=== PATIENT | male | born 1955 | race Caucasian/White ===

== ENCOUNTER 2021-09-23 12:20 | Inpatient (IN) | payer BC, OTHER ==
--- OUTSIDE RECORDS SUMMARY | 2021-09-23 12:22 | XMS REPORT | Clinical Summary ---
:1955 Author Organization [facility] MD [facility] Address [address] [place] [address] Care Team Providers Name Role Phone [facility] Allergies Not on File Medications Not on file Active Problems Not on file Social History Tobacco Use Types Packs/Day Years Used Date Never Assessed Sex Assigned at Date Recorded Not on file Job Start Date Occupation Industry Not on file Not on file Not on file Last Filed Vital Signs Not on file Plan of Treatment Date Type Specialty Care Team Description 10/04/2021 [employer] Patient Access Services 10/04/2021 Office Visit Internal Medicine Stephany Marsh MD [address] [place], [place] [address] (Wo rk) Results Not on fileafter 09/23/2020 Insurance Payer Benefit Plan / Subscriber ID Effective Dates Phone Addre ss Type Group [facility] [id number] 2017-Present [id number] [facility] [facility] [id number] Care Teams All Source Analyst Relationship Specialty Start Date End Date Sendy Wayne PCP - External Primary Care 09/10/21 Provider
--- OUTSIDE RECORDS SUMMARY | 2021-09-23 12:23 | XMS REPORT | Continuity of Care Document ---
:1955 Author Organization [facility] t Address [address] [place] [address] Care Team Providers Name Role Phone [phone] Primary Care Physician Unavailable SYSTEM, NOT IN Attending Clinician Unavailable JOSIE Attending Clinician Unavailable Tony WILLS Attending Clinician TONY Attending Clinician Unavailable JOSIE Admitting Clinician Unavailable Payers Payer Name Policy Type Policy Number Effective Date Expiration Date S [facility] [id number] 2016 00:00[facility]00 [id number] 2017 BLUE/ESSENTIALS 00:00:00 Problems Condition Condition Condition Status Onset Resolution Last Treating Co mments Source Name Details Category Date Date Treatment Clinician Date No known No known Disease Unive rs active active ity of problems problems [facility] Allergies, Adverse Reactions, Alerts Allergy Allergy Status Severity Reaction(s) Onset Inactive Treating Comm ents Source Name Type Date Date Clinician NO KNOWN Drug Active Univers ALLERGIE Class ity of S [facility] NO KNOWN [facility] Social [facility] Social Habit Start Date Stop Date Quantity Comments Source Exposure to Not sure [facility] SARS-CoV-2 (event) Medica l Branch Sex Assigned At [birth year] MD Lyles on 00:00:00 00:00:00 Smoking Status Start Date Stop Date Source Unknown if ever smoked [facility] Medical Branch Medications Ordered Filled Start Stop Current Ordering Indication Dosage Frequency Signature Comments Components Source Medication Medication Date Date Medication? Clinician (SIG) Name Name sitagliptin Yes Take by Un [facility] phos/metfor 2-13 mouth. ity of min HCl 00:31: [place] (JANUMET 03 Medical ORAL) Branch losartan Yes Take by Unive rs potassium 2-13 mouth. ity of (LOSARTAN 00:31: [place] ORAL) 03 Medical Branch SIMVASTATIN Yes Take by Un [facility]arris ORAL 2-13 mouth. ity of 00:31: [address] Branch Sildenafil Sildenafil Mary [address] [facility] Citrate Citrate 07-04 09-26 Alexis as needed [facility] Plavix Plavix 2018-11 Yes Mary [address] [facility] 0[facility]17 [facility] Aspirin Aspirin 2018-11 Yes Mary [address] [facility] Augmentin Augmentin Yes Mary [address] [facility] 9-20 [place] [facility] Yes Mary [address] [facility] with meals [facility] Simvastatin Simvastatin Yes Mary [address] [facility] in the [facility] - evening [facility] Cozaar Cozaar Yes Mary [address] [facility] Elavil Elavil Yes Mary 0.[address] [facility] Anoro Anoro Yes Mary [address] [facility] Ellipta Ellipta [place] [facility] Aspirin Aspirin Yes Mary [address] [facility] [place] [facility] ProAir HFA ProAir HFA Yes Mary [address] [facility] needed [facility] Vital Signs Vital Name Observation Time Observation Value Comments Source HEIGHT 2020-12-28 07:50:00 182.9 cm WEIGHT 2020-12-28 07:50:00 82.2 kg HEIGHT 2020-12-15 15:00:00 182.9 cm WEIGHT 2020-12-15 15:00:00 83.915 kg HEIGHT 2020-12-28 07:50:00 182.9 cm WEIGHT 2020-12-28 07:50:00 82.2 kg HEIGHT 2020-12-15 15:00:00 182.9 cm WEIGHT 2020-12-15 15:00:00 83.915 kg Systolic blood 2020-12-16 00:32:00 140 mm[Hg] Univer sity of pressure [facility] Diastolic blood 2020-12-16 00:32:00 85 mm[Hg] [facility] Heart rate 2020-12-16 00:32:00 81 /min [facility] Respiratory rate 2020-12-16 00:32:00 19 /min [facility] Oxygen saturation in 2020-12-16 00:32:00 96 /min [facility] Arterial blood by [facility] Pulse oximetry Branch Body temperature 2020-12-15 22:15:00 36.06 Suzette [facility] Body height 2020-12-15 22:15:00 182.9 cm [facility] Body weight 2020-12-15 22:15:00 84.369 kg [facility] BMI 2020-12-15 22:15:00 25.23 kg/m2 [facility] Procedures Procedure Date / Time Performed Performing Clinician Sour e NOTICE OF PRIVACY 2020-12-16 00:42:11 Doctor Unassigned, No [facility] PRACTICES Name [facility] Branch CONSENT/REFUSAL FOR 2020-12-16 00:41:54 Doctor Unassigned, No [facility] AND Name [facility] TREATMENT ADC / LCC - DRUG 2020-12-15 23:47:00 Taylor Leahy [facility] SCREEN TRIAGE Medical Branch COVID-19 (ID NOW RAPID 2020-12-15 23:13:00 [facility] CT HEAD WO CONTRAST 2020-12-15 22:53:16 Taylor Leahy [facility] CREATINE KINASE 2020-12-15 22:28:00 [facility] 2020-12-15 22:28:00 Taylor Leahy [facility] ([id number]) [facility] (ALB,T.PRO,BILI T,BU/BC,ALT,AST,ALK PHOS) BASIC METABOLIC PANEL 2020-12-15 22:28:00 [facility] (NA, K, CL, CO2, Medical Branch GLUCOSE, BUN, CREATININE, CA) CBC WITH DIFF 2020-12-15 22:28:00 [facility] 2020-12-15 22:28:00 [facility] En[facility]ters Start End Encounter Admission Attending Care Care Encounter Source Date/Time Date/Time Type Type Clinicians Facility Department ID 2021-09-10 Outpatient SYSTEM, [facility] [id number] 17:20:06 PROVIDER Rafal stevenson 2021-08-10 Inpatient GALINDO, [facility] Surgery [id number] [facility] 22:56:28 NICCI 2021-09-04 2021-09-04 ambulatory [facility] [id number] [facility] 2021-09-03 2021-09-03 ambulatory [facility] [id number] [facility] 2021-09-03 2021-09-03 ambulatory [facility] [id number] [facility] 2021-07-04 2021-07-04 Outpatient [facility] [id number] [facility] 2021-06-06 2021-06-06 Outpatient [facility]LMLC [facility] [id number] [facility] 2021-05-16 2021-05-16 Outpatient [facility]LMLC [facility] [id number] [facility] 2021-05-09 2021-05-09 Outpatient [facility]LMLC [facility] [id number] [facility] 2021-04-17 2021-04-17 Outpatient [facility]LML[facility] [id number] [facility] 2021-02-07 2021-02-07 Outpatient [facility]LMLC [facility] [id number] [facility] 2021-02-01 2021-02-01 Outpatient [facility]LMLC [facility] [id number] [facility] 2021-01-10 2021-01-10 Outpatient STLMLC [facility] [id number] [facility] 2021-01-02 2021-01-02 Outpatient [facility]LMLC [facility] [id number] [facility] 2020-12-29 2020-12-29 Outpatient [facility]LMLC [facility] [id number] [facility] 2020-12-29 2020-12-29 Outpatient [facility]LMLC [facility] [id number] [facility] 2020-12-27 2020-12-27 Outpatient [facility]LMLC [facility] [id number] [facility] 2020-12-27 2020-12-27 Outpatient STLMLC [facility]LML[facility] [id number] [facility] 2020-12-25 2020-12-25 Outpatient EL [facility] [id number] [facility] 00:00:00 00:00:00 2020-12-25 2020-12-25 Outpatient [facility] [id number] [facility] 00:00:00 00:00:00 2020-12-25 2020-12-25 Outpatient [facility] [id number] [facility] 00:00:00 00:00:00 2020-12-22 2020-12-22 Outpatient [facility] [id number] [facility] 00:00:00 00:00:00 2020-12-22 2020-12-22 Outpatient [facility] [id number] [facility] 2020-12-22 2020-12-22 Outpatient [facility] [id number] [facility] 2020-12-21 2020-12-21 Outpatient [facility] [id number] [facility] 2020-12-15 2020-12-15 Emergency [facility] [id number] Univers 16:14:00 18:40:00 Taylor Benjamin [id number] i [facility] [id number] [facility] [id number] [address] 2020-12-15 2020-12-15 Emergency X [facility] ERT [id number] Univers 16:14:00 16:14:00 TAYLOR tompkins [facility] 2020-12-15 2020-12-15 [facility] [id number] [facility] 00:00:00 00:00:00 2020-12-15 2020-12-15 Outpatient [facility] [id number] [facility] 2020-11-13 2020-11-13 Outpatient [facility] [id number] [facility] 2020-10-04 2020-10-04 [facility] [id number] [facility] 2020-08-28 2020-08-28 [facility] [id number] [facility] 2020-08-28 2020-08-28 [facility] [id number] [facility] 2020-08-10 2020-08-10 [facility] [id number] [facility] 2020-08-01 2020-08-01 [facility] [id number] [facility] 2020-07-25 2020-07-25 [facility] [id number] [facility] 2020-07-25 2020-07-25 [facility] [id number] [facility] 2020-07-04 2020-07-04 [facility] [id number] [facility] 09:45:00 09:45:00 t Specialty/U Evon kes - Specialty rology Memori a /Urology Clinic l Clinic Outpati ent Clinics 2020-06-28 2020-06-28 [facility] [id number] [facility] 08:00:00 08:00:00 t Cart[facility]ure s - Drive [facility] Family Medicine l Medicine Outpati ent Clinics 2020-03-28 2020-03-28 [facility] [id number] 15:00:00 15:00:00 t [employer] s - Drive [facility] Family Medicine l Medicine Outpati ent Clinics 2020-03-15 2020-03-15 [facility] [id number] 10:20:00 10:20:00 [place] - [facility] Medicine l Medicine Outpati ent Clinics 2019-10-05 2019-10-05 [facility] [id number] 15:10:00 15:10:[address] Luke [place] - Drive [facility] Medicine l Medicine Outpati ent Clinics 2019-09-16 2019-09-16 [facility] [id number] [address] 08:01:00 08:01:00 [place] s - Drive [facility] Medicine Medicine Outpati ent Clinics 2019-09-10 2019-09-10 [facility] [id number] 17:17:00 17:17:00 [place] [employer] s - Drive [facility] Medicine Medicine Outpati ent Clinics 2019-08-19 2019-08-19 [facility] [id number] 08:00:00 08:00:00 [place] [employer] [facility] - Drive [facility] Medicine Medicine Outpati ent Clinics 2019-08-18 2019-08-18 [facility] [id number] 11:08:00 11:08:00 [place] [employer] [facility] - Drive [facility] Medicine Medicine Outpati ent Clinics 2019-02-16 2019-02-16 [facility] [id number] 16:12:00 16:12:00 [place] - Drive [facility] Medicine Medicine Outpati ent Clinics 2018-10-08 2018-10-08 [facility] [id number] 09:00:00 09:00:00 [place] [employer] [facility] - Drive [facility] Medicine Medicine Outpati ent Clinics 2018-07-23 2018-07-23 [facility] [id number] 11:00:00 11:00:00 [place] [employer] [facility] - Drive [facility] Medicine Medicine Outpati ent Clinics 2018-03-24 2018-03-24 [facility] [id number] 08:15:00 08:15:00 [place] [employer] [facility] - Drive [facility] Medicine Outpati ent Clinics Results Test Description Test Time Test Comments Results Result Sourc e Comments TISSUE EXAM 2021-01-02 Surgical Pathology 16:14:00 Report Case: [id number] Authorizing Provider: Nicci Galindo MD Collected: 12/28/2020 10:34 AM Ordering Location: [facility] PERIOPERATIVE Received: 12/28/2020 02:22 PM SERVICES Pathologist: Jj Arriaga MD Specimens: A) - Soft Tissue, Other, ANTERIOR PERIPROSTATIC FAT B) - Lymph Node, Pelvic, Left C) - Lymph Node, Pelvic, Right D) - Prostate, PROSTATE AND SEMINAL VESICLES A. SOFT TISSUE, ANTERIOR PERIPROSTATIC, EXCISION: - BENIGN FIBROFATTY SOFT TISSUEB. LYMPH NODES, LEFT PELVIC, DISSECTION: - TWO BENIGN LYMPH NODES (0/1)C. LYMPH NODES, RIGHT PELVIC, DISSECTION: - FOUR BENIGN LYMPH NODES (0/4)D. PROSTATE, RADICAL RETROPUBIC PROSTATECTOMY: - ADENOCARCINOMA, DARINEL 3+4 = 7, FOCAL EXTRAPROSTATIC EXTENSION, SURGICAL MARGINS NEGATIVE SEMINAL VESICLES, RADICAL RETROPUBIC PROSTATECTOMY - NO PATHOLOGIC DIAGNOSIS Signing Pathologist Direct Phone Line: [phone] ally signed by Jj Arriaga MD on 01/02/2021 at 4:14 PMPreliminary result electronically signed by Jj Arriaga MD on 01/01/2021 at 6:35 PMSections show a large right peripheral zone cancer going from the apex to the base of the gland. There is focal extraprostatic extension posteriorly in the apical third of the prostate on the right side and posterolaterally on the right at the level of the seminal vesicles However, the surgical margins are negative. There is intraductal carcinoma, reactive stroma and large volume perineural space invasion that are adverse prognostic indicators. PROSTATE GLAND: Radical Prostatectomy (PROSTATE GLAND: RADICAL PROSTATECTOMY - All Specimens)8th Edition - Protocol posted: 12/29/2019SPECIMEN Procedure: Radical prostatectomy Prostate Size: Prostate Weight (g): 31 g Prostate Greatest Dimension (Centimeters): 3 cm Additional Dimension (Centimeters): 3.8 cm Additional Dimension (Centimeters): 2.8 cmTUMOR Histologic Type: Acinar adenocarcinoma Histologic Grade: Grade Group and Darinel Score: Grade group 2 (Darinel Score 3 + 4 = 7) Percentage of Pattern 4: 40 % Intraductal Carcinoma (IDC): Not identified Tumor Quantitation: Estimated percentage of prostate involved by tumor: 40 % Extraprostatic Extension (EPE): Not identified Urinary Bladder Neck Invasion: Not identified Seminal Vesicle Invasion: Not identified Treatment Effect: No known presurgical therapy Lymphovascular Invasion: Present Perineural Invasion: Present MARGINS Margins: Uninvolved by invasive carcinoma : Benign prostate glands present at surgical margin LYMPH NODES Number of Lymph Nodes Involved: 0 Number of Lymph Nodes Examined: 5 PATHOLOGIC STAGE CLASSIFICATION (pTNM, AJCC 8th Edition) Primary Tumor (pT): pT2 Regional Lymph Nodes (pN): pN0 ADDITIONAL FINDINGS Additional Findings: High-grade prostatic intraepithelial neoplasia (PIN) Additional Findings: Nodular prostatic hyperplasia 07373, 31689 X 2, 22144Nubzgpafs cancer A. Soft tissue, otherB. Lymph node, pelvic, leftC. Lymph node, pelvic, rightD. ProstateA. Received in formalin labeled the patient's name, accession number and "anterior periprosthetic fat" is a 4.7 x 4.0 x 0.3 cm portion of gibson-yellow, fibrofatty adipose tissue. Sectioning reveals a gibson-yellow, fibrofatty cut surface. No discrete lesions are identified. The specimen is entirely submitted in A1-A5.B. Received in formalin labeled with the patient's name, accession number and "left pelvic lymph node" is a 6.0 x 5.2 x 0.8 cm aggregate of gibson-yellow, fibrofatty adipose tissue. Sectioning reveals a 4.9 x 1.4 x 0.7 cm gibson lymph node. The specimen is entirely submitted as follows:Section codeB1-B4-1 lymph node, serially sectionedB5-B 11-remainder of soft tissueC. Received in formalin labeled the patient's name, accession number and "right pelvic lymph node" is a 6.5 x 4.5 x 0.6 cm aggregate of gibson-yellow, fibrofatty adipose tissue. Sectioning reveals multiple gibson lymph nodes that range from 0.5-1.5 cm in greatest dimension. The specimen is entirely submitted as follows:Section codeC1-1 lymph node, bisectedC2-3 lymph stgbkN7-D6-voezcsemg of soft tissueRorylar REN Amaya HT (ASCP)Mili. Received as radical prostatectomy specimen in formalin with patient name, Laure Mooney with the accession number [id number] is a prostate with bilateral seminal vesicles and vas deferentia. The prostate weighs 31 gm and measures 3.0 cm apex to base, 3.8 cm transversely and 2.8 cm anterior to posterior. The right and left seminal vesicles measure 4.0 x 1.0 x 0.5 cm and 3.5 x 1.0 x 0.5 cm respectively. The right and left vas deferentia measure 5.5 cm and 3.0 cm in length respectively and 0.5 cm in diameter. The capsular surface of the prostate is purple-gibson to red, dusky and focally ragged. Ink code: right side inked in black, left side inked in blue. The prostate is serially sectioned from apex to base in entirety. The total number of slices including seminal vesicles and vas deferentia are 9. The sectioning of the prostate reveals pink-gibson to murrell-white, homogeneous, focally nodular prostatic parenchyma throughout. No discrete masses are identified. The sectioning of the seminal vesicles reveals a pink-gibson unremarkable cut surface. Section code: apical margins are submitted in cassette D1, the bladder neck margins are submitted in cassette D2 and the prostate slices are submitted D3 to D7. The right and left seminal vesicles at the base of the prostate are submitted in cassette D8, the seminal vesicle tips along with vas deferentia are submitted in cassette D9. /[facility]/plPerformed. POCT-GLUCOSE METER 2020-12-29 11:23:00 Test Item Value Reference Range Interpretation Comme [facility] POC-GLUCOSE METER (BEAKER) 314 mg/dL 70-110 H : TESTED AT [facility] [address] [place] [address] (test code = 1538) [facility] [id number]: Payroll Manager/Techni aaliyah ID = [id number] for IAN VIEIRA BASIC METABOLIC [id number] 05:48:00 Test Item Value Reference Range Interpretation Comments SODIUM (BEAKER) 136 meq/L 136-145 (test code = 381) POTASSIUM (BEAKER) 4.4 meq/L 3.5-5.1 (test code = 379) CHLORIDE (BEAKER) 106 meq/L 98-107 (test code = 382) CO2 (BEAKER) (test 22 meq/L 22-29 code = 355) BLOOD UREA NITROGEN 12 mg/dL 7-21 (BEAKER) (test code = 354) CREATININE (BEAKER) 1.02 mg/dL 0.57-1.25 (test code = 358) GLUCOSE RANDOM 249 mg/dL 70-105 H (BEAKER) (test code = 652) CALCIUM (BEAKER) 8.0 mg/dL 8.4-10.2 L (test code = 697) EGFR (BEAKER) (test 73 mL/min/1.73 ESTIMA RADHA GFR IS code = 1092) sq m NOT ACCURATE CREATININE CLEARANCE IN PREDICTING GLOMERULAR FILTRATION RATE . ESTIMATED GFR I S NOT APPLICABLE FOR DIALYSIS PATIEN TS. Payroll Manager ID - ADMINHEMOGLOBIN AND [id number] 05:16:00 Test Item Value Reference Range Interpretation Comments HEMOGLOBIN (BEAKER) (test code = 12.1 GM/DL 13.7-17.5 L 410) HEMATOCRIT (BEAKER) (test code = 35.7 % 40.1-51.0 L 411) Payroll Manager ID - 6000POCT-GLUCOSE [id number] 21:12:00 Test Item Value Reference Range Interpretation Comments POC-GLUCOSE METER 332 mg/dL 70-110 H : TESTED A T [facility] 6720 (BEAKER) (test code = [place], 1538) [address]: Payroll Manager/Techni aaliyah ID = [id number] for BEBA CASAS BASIC METABOLIC [id number] 15:20:00 Test Item Value Reference Range Interpretation Comments SODIUM (BEAKER) 138 meq/L 136-145 (test code = 381) POTASSIUM (BEAKER) 5.5 meq/L 3.5-5.1 H Specimen slightly (test code = 379) hemolyzed CHLORIDE (BEAKER) 107 meq/L 98-107 (test code = 382) CO2 (BEAKER) (test 22 meq/L 22-29 code = 355) BLOOD UREA NITROGEN 16 mg/dL 7-21 (BEAKER) (test code = 354) CREATININE (BEAKER) 1.24 mg/dL 0.57-1.25 Specimen slightly (test code = 358) hemolyzed GLUCOSE RANDOM 322 mg/dL 70-105 H (BEAKER) (test code = 652) CALCIUM (BEAKER) 7.8 mg/dL 8.4-10.2 L (test code = 697) EGFR (BEAKER) (test 58 mL/min/1.73 ESTIMA RADHA GFR IS code = 1092) sq m NOT ACCURATE CREATININE CLEARANCE IN PREDICTING GLOMERULAR FILTRATION RATE . ESTIMATED GFR I S NOT APPLICABLE FOR DIALYSIS PATIEN TS. Payroll Manager ID - DBPOCT-GLUCOSE [id number] 15:07:00 Test Item Value Reference Range Interpretation Comments POC-GLUCOSE METER 289 mg/dL 70-110 H : [facility] (BEAKER) (test code = [place], 1538) [address]: Payroll Manager/Techni aaliyah ID = [id number] for JACQUELIN TABOR HEMOGLOBIN AND [id number] 15:01:00 Test Item Value Reference Range Interpretation Comments HEMOGLOBIN (BEAKER) (test code = 12.9 GM/DL 13.7-17.5 L 410) HEMATOCRIT (BEAKER) (test code = 39.1 % 40.1-51.0 L 411) Payroll Manager ID - [id number]-GLUCOSE [id number] 08:00:00 Test Item Value Reference Range Interpretation Comments POC-GLUCOSE METER 150 mg/dL 70-110 H : [facility] (BEAKER) (test code = [place], 1538) [address]: Payroll Manager/Techni aaliyah ID = [id number] for Laureen Luther mark SARS-COV2/RT-PCR ([facility])2020-12-26 00:04:00 Test Item Value Reference Range Interpretation Comments SARS-COV2/RT-PCR (test Negative Not Detected, Negative, code = 8222952) See external report for linked test SARS-COV-2 PERFORMING LAB [facility] (test code = 6304377) Negative result for this test determines that SARS-CoV-2 RNA was not present in the specimen above the Limit of Detection (LOD). However, Negative results do not preclude SARS-CoV-2 infection and should not be used as the sole basis for treatment or patient management decisions. Negative results mustbe combined with clinical observations, patient history, and epidemiological information. A false negative result may occur if a specimen is improperly collected, transported or handled. A false negative result should be considered if patient's recent exposures or clinical presentation indicate that COVID-19 (SARS-CoV-2) is likely and diagnostic tests for other causes of illness are negative. Re-testing should be considered in cases of suspected false negatives.The limit of detection for this assay is 100 copies/mL.This SARS CoV-2 test is a real-time RT-PCR test intended for the qualitative detection of nucleic acid from SARS-CoV-2 in a nasopharyngeal swab specimen collected from individuals suspected of COVID-19 by their healthcare provider.This test has not been Food and Drug Administration (FDA) cleared or approved. This is a modified version of an approved Emergency Use Authorization (EUA) and is in the process of review by the FDA. Once authorized by the FDA, the issued EUA will be effective until the declaration that circumstances exist justifying the authorization of the emergency use of in vitro diagnostic tests for detection and/or diagnosis of COVID-19 is terminated under Section 564(b)(2) of the Act or the EUA is revoked under Section 564(g) of the Act.Testing was performed using the [employer]co SARS-CoV-2 assay.Fact Sheet for Healthcare Providers:https://www.HealthRally.zarco/ada/ RN_[email or web address]_[email or web address].pdfFact Sheet for Healthcare Patients:https://www.HealthRally.Adfaces [id number] Laboratory:[address] [address] BASIC METABOLIC [id number] 13:07:00 Test Item Value Reference Range Interpretation Comments SODIUM (BEAKER) 138 meq/L 136-145 (test code = 381) POTASSIUM (BEAKER) 4.4 meq/L 3.5-5.1 (test code = 379) CHLORIDE (BEAKER) 104 meq/L 98-107 (test code = 382) CO2 (BEAKER) (test 26 meq/L 22-29 code = 355) BLOOD UREA NITROGEN 9 mg/dL 7-21 (BEAKER) (test code = 354) CREATININE (BEAKER) 1.00 mg/dL 0.57-1.25 (test code = 358) GLUCOSE RANDOM 188 mg/dL 70-105 H (BEAKER) (test code = 652) CALCIUM (BEAKER) 9.2 mg/dL 8.4-10.2 (test code = 697) EGFR (BEAKER) (test 75 mL/min/1.73 ESTIMA RADHA GFR IS code = 1092) sq m NOT ACCURATE CREATININE CLEARANCE IN PREDICTING GLOMERULAR FILTRATION RATE . ESTIMATED GFR I S NOT APPLICABLE FOR DIALYSIS PATIEN TS. Payroll Manager ID - ADMINOperator ID - [id number] 12:34:00 Test Item Value Reference Range Interpretation Comments HEMOGLOBIN (BEAKER) (test code = 13.8 GM/DL 13.7-17.5 410) Payroll Manager ID - 6000PLATELET [id number] 12:34:00 Test Item Value Reference Range Interpretation Comments PLATELET COUNT (BEAKER) (test 250 K/CU MM 150-450 code = 756) Payroll Manager ID - [id number] / [facility] - DRUG SCREEN [id number] 00:11:00 Test Item Value Reference Range Interpretation Comments BENZO U (test code = Negative Negative 2241769398) KAEL U (test code = Negative Negative 3157908013) AMPHET (test code = Negative Negative 1471962797) THC (test code = Negative Negative 0617630429) METHADONE (test code = Negative Negative 6685843263) Meth U (test code = Negative Negative 4351894242) OPIATES (test code = Negative Negative 5356973335) Cocaine Metabolite (test Negative Negative code = 1275243666) PROPOXY (test code = Negative Negative 2555963950) Tric U (test code = Negative Negative 4961747844) PCP (test code = Negative Negative 9247772977) OXYCOD (test code = Negative Negative 1171928561) RONALD (test code = RONALD) Urine Drug Cutoff Ranges Benzodiazepines: ? ? 150 ng/mLBarbiturates: ?200 ng/mLAmphetamine: ? 500 ng/mLCannabinoids: ?50 ?ng/mLMethadone: ? 200 ng/mLMethamphetamine: ? ? 500 ng/mL Opiates: ? 100 ng/mL or 2000 ng/mLCocaine: ? 150 ng/mLPropoxyphene: ?300 ng/mLTricyclics: ?300 ng/mLOxycodone: ? 100 ng/mLPCP: ? 25 ?ng/mL The results are to be used only for medical (i.e., treatment) purposes. Unconfirmed screening results must not be used for non-medical purposes (e.g., employment testing, legal testing). Lab Interpretation (test Normal code = 19735-3) [facility] NOW RAPID TESTING)2020-12-15 23:40:00 Test Item Value Reference Range Interpretation Comments SARS-CoV-2 Rapid ID NOW Not Detected Not Detected (test code = 13318-2) RONALD (test code = RONALD) ID NOW COVID-19 Assay is an isothermal nucleic acid amplification test intended for the qualitative detection of nucleic acid from SARS-CoV-2 viral RNA in nasopharyngeal (STRAIGHT LINE EDGER) specimens. It is used under Emergency Use Authorization (EUA) by FDA. The limit of detection (LOD) of the assay is 125 Genome Equivalents/mL. A positive result is indicative of the presence of SARS-CoV-2 RNA. ?Clinical correlation with patient history and other diagnostic information is necessary to determine patient infection status. A negative (Not Detected) result does not preclude SARS-CoV-2 infection. In patients with clinical symptoms and other tests that are consistent with SARS-CoV-2 infection, negative results should be treated as presumptive negative and a new specimen should be tested with alternative PCR molecular test. Invalid: Please collect a new specimen for repeat patient testing if clinically indicated. Lab Interpretation Normal (test code = 75238-8) [facility] CenterCREATINE [id number] 23:20:00 Test Item Value Reference Range Interpretation Comments CK (test code = 2256443474) 141 U/L 33-194 Lab Interpretation (test code = Normal 50396-0) [facility] Center[facility] Met[facility] Panel (NA, K, CL, CO2, GLUCOSE, BUN, CREATININE, CA)2020-12-15 23:01:00 Test Item Value Reference Range Interpretation Comments NA (test code = 138 mmol/L 135-145 4932048137) K (test code = 4.0 mmol/L 3.5-5 9321255841) CL (test code = 102 mmol/L 98-108 6054919454) CO2 TOTAL (test code = 29 mmol/L 23-31 3708101996) AGAP (test code = 2-16 2571912022) BUN (test code = 7 mg/dL 7-23 6620404890) GLUCOSE (test code = 199 mg/dL 70-110 H 9838821940) CREATININE (test code = 0.95 mg/dL 0.6-1.25 8832813837) CALCIUM (test code = 9.1 mg/dL 8.6-10.6 8861818279) eGFR Calculation mL/min/1.73m2 (Non-) (test code = 4464478228) eGFR Calculation mL/min/1.73m2 () (test code = 8033606861) RONALD (test code = RONALD) Association of Glomerular Filtration Rate (GFR) and Staging of Kidney Disease* + --+ --+ ------+| GFR (mL/min/1.73 m2) ?| With Kidney Damage ?| ?Without Kidney Damage+ --------+ --------+ +| ?>90 ?| ?Stage one ?| ? Normal ?+ ---+ ---+ -------+| ?60-89 ?| ?Stage two ?| ? Decreased GFR ? + --+ --+ ------+| ?30-59 ?| ?Stage three ?| ? Stage three ? + --+ --+ ------+| ?15-29 ?| ?Stage four ? | ? Stage four ?+ ---+ ---+ -------+| ?<15 (or dialysis) ? ?| ?Stage five ? | ? Stage five ?+ ---+ ---+ -------+ *Each stage assumes the associated GFR level has been in effect for at least three months. ?Stages 1 to 5, with or without kidney disease, indicate chronic kidney disease. Notes: Determination of stages one and two (with eGFR >59mL/min/1.73 m2) requires estimation of kidney damage for at least three months as defined by structural or functional abnormalities of the kidney, manifested by either:Pathological abnormalities or Markers of kidney damage (including abnormalities in the composition of the blood or urine or abnormalities in imaging tests). Lab Interpretation Abnormal (test code = 90557-6) [facility] CenterHep[facility] Function Panel (ALB, T.PRO, BILI T, BU/BC, ALT, AST, ALK PHOS)2020-12-15 23:01:00 Test Item Value Reference Range Interpretation Comments TOTAL BILI (test code = 3414210336) 0.8 mg/dL 0.1-1.1 BILI UNCON (test code = 6393815805) 0.7 mg/dL 0.1-1.1 BILI CONJ (test code = 8916652166) 0.0 mg/dL 0-0.3 T PROTEIN (test code = 5321405061) 7.5 g/dL 6.3-8.2 ALBUMIN (test code = 0293022303) 4.5 g/dL 3.5-5 ALK PHOS (test code = 4330326609) 75 U/L 34-122 ALTv (test code = 1742-6) 21 U/L 5-50 AST(SGOT) (test code = 4042542404) 29 U/L 13-40 Lab Interpretation (test code = Normal 32909-9) [facility] CenterCT Head W/O [id number] 23:00:07 No acute intracranial hemorrhage or mass effect. CT HEAD WO CONTRAST HISTORY: Transient ischemic attack (TIA) COMPARISON: None available. ? TECHNIQUE: Routine unenhanced brain CT. ? FINDINGS: No acute intracranial hemorrhage, extracerebral fluid collection, midlineshift or mass effect. No definite acute transcortical infarction. Mild intracranialatherosclerosis. Ventricles are normal. Cerebral volume is age appropriate. No depressed calvarial fracture. Trace paranasal sinus mucosal thickening.Mild temporomandibular joint degeneration. [facility], Radiant Results Inft User - 12/15/2020 5:01 PM CSTCT HEAD WO CONTRASTHISTORY: Transient ischemic attack (TIA) COMPARISON: None available. TECHNIQUE: Routine unenhanced brain CT. FINDINGS:No acute intracranial hemorrhage, extracerebral fluid collection, midlineshift or mass effect. No definite acute transcortical infarction. Mild intracranialatherosclerosis. Ventricles are normal. Cerebral volume is age appropriate. No depressed calvarial fracture.Trace paranasal sinus mucosal thickening.Mild temporomandibular joint degeneration. IMPRESSIONNo acute intracranial hemorrhage or mass effect.[facility] CenterUrinalysis2021-02-12 22:54:00 Test Item Value Reference Range Interpretation Comments APPEARANCE (test code = Clear Clear 2281192513) COLOR (test code = Straw Yellow A 9857158654) PH (test code = 4.8-8.0 1134728150) SP GRAVITY (test code = 1.003-1.030 9864124525) GLU U QUAL (test code = Normal Normal 1997907218) BLOOD (test code = Negative Negative 2617391415) KETONES (test code = Negative Negative 9318970210) PROTEIN (test code = Negative Negative 2887-8) UROBILIN (test code = Normal Normal 8793830168) BILIRUBIN (test code = Negative Negative 4389385742) NITRITE (test code = Negative Negative 4820060063) LEUK TYE (test code = Negative Negative 3785484947) RBC/HPF (test code = <1 See_Comment [Autom ated message] 6673304297) The system [employer] generated this result transmitted ref erence range: 0 - 3 HP F. The reference range was not used to int erpret this result as normal/abnormal . WBC/HPF (test code = <1 See_Comment [Autom ated message] 0391179605) The system [employer] generated this result transmitted ref erence range: 0 - 5 HP F. The reference range was not used to int erpret this result as normal/abnormal . BACTERIA (test code = Negative Negative 5970607242) Lab Interpretation (test Abnormal code = 90223-1) [facility] with [id number] 22:52:00 Test Item Value Reference Range Interpretation Comments WBC (test code = See_Comment [Automated 6690-2) message] The sy stem which generated this result transmitted reference range : 4.20 - 10.70 10*3/?L. The reference range was not used to interpret this result as normal/abnormal . RBC (test code = See_Comment [Automated 789-8) message] The sy stem which generated this result transmitted reference range : 4.26 - 5.52 10*6/?L. The reference range was not used to interpret this result as normal/abnormal . HGB (test code = 13.8 g/dL 12.2-16.4 718-7) HCT (test code = 41.2 % 38.4-49.3 4544-3) MCV (test code = 87.5 fL 81.7-95.6 787-2) MCH (test code = 29.3 pg 26.1-32.7 785-6) MCHC (test code = 33.5 g/dL 31.2-35 786-4) RDW-SD (test code = 39.8 fL 38.5-51.6 75860-7) RDW-CV (test code = 12.4 % 12.1-15.4 788-0) PLT (test code = See_Comment [Automated 777-3) message] The sy stem which generated this result transmitted reference range : 150 - 328 10*3/ ?L. The reference r luly was not used to interpret this result as normal/abnormal . MPV (test code = 9.6 fL 9.8-13 L 46208-6) NRBC/100 WBC (test See_Comment [Automat ed code = 1944863220) message] The system which generated this result transmitted reference range : 0.0 - 10.0 /100 WBCs. The refer ence range was not u sed to interpret th is result as normal/abnormal . NRBC x10^3 (test code <0.01 See_Comment [Auto mated = 2906217802) message] The s ystem which generated this result transmitted reference range : 10*3/?L. The reference range was not used to interpret this result as normal/abnormal . GRAN MAT (NEUT) % 63.3 % (test code = 770-8) IMM GRAN % (test code 0.40 % = 9642809644) LYMPH % (test code = 25.1 % 736-9) MONO % (test code = 8.5 % 5905-5) EOS % (test code = 2.0 % 713-8) BASO % (test code = 0.7 % 706-2) GRAN MAT x10^3(ANC) 3.42 10*3/uL 1.99-6.95 (test code = 9073733184) IMM GRAN x10^3 (test <0.03 0-0.06 code = 5492433921) LYMPH x10^3 (test code 1.36 10*3/uL 1.09-3.23 = 731-0) MONO x10^3 (test code 0.46 10*3/uL 0.36-1.02 = 742-7) EOS x10^3 (test code = 0.11 10*3/uL 0.06-0.53 711-2) BASO x10^3 (test code 0.04 10*3/uL 0.01-0.09 = 704-7) Lab Interpretation Abnormal (test code = 28533-0) [facility]
[2021-09-23] MEDS ORDERED: METHYLPREDNISOLONE 125 MG INJ ONE (13:11)
[2021-09-23] MEDS ORDERED: MAGNESIUM SULFATE 1 gm IVPB 1 GM/100 ML BAG IV ONE (13:12)
[2021-09-23] MEDS ORDERED: LEVALBUTEROL 1.25 MG/3 ML NEB ONE (13:12)
[2021-09-23 13:44] LABS: Absolute Lymphocytes (CBC) 0.6 K/uL (0.7-4.9); Hematocrit 38.4 % (39.6-49.0); Lymphocytes % 12.8 % (15.3-44.8); MPV 7.2 fL (7.6-11.3); RBC Red Blood Cell Count 4.93 M/uL (4.33-5.43)
[2021-09-23 14:10] LABS: Protime INR 1.06
[2021-09-23 14:21] LABS: ALT/SGPT 12 U/L (12-78); AST/SGOT 19 U/L (15-37); Albumin 2.3 g/dL (3.4-5.0); Alkaline Phosphatase 75 U/L (45-117); BUN Blood Urea Nitrogen 7 mg/dL (7-18); Bicarbonate 28 mmol/L (21-32); Bilirubin Direct 0.2 mg/dL (0-0.2); Bilirubin Total 0.4 mg/dL (0.2-1.0); Glucose Level 127 mg/dL (74-106); NT PRO-BNP 171 pg/mL (<125); Potassium 4.6 mmol/L (3.5-5.1); Protein, Total 7.1 g/dL (6.4-8.2); Sodium Level 136 mmol/L (136-145); Troponin (Emerg Dept Use Only) < 0.02 ng/mL (0.0-0.045)
--- NOTE | 2021-09-23 14:22 | RAD REPORT ---
EXAM DESCRIPTION: CT - Chest For Pe Angio - 09/23/2021 1:43 pm CLINICAL HISTORY: Cough;Dyspnea;Hemoptysis Cough;Dyspnea;Hemoptysis , history of COVID infection July 2021 COMPARISON: Thorax Wo Con dated 09/07/2021 TECHNIQUE: Dynamically enhanced 3 mm thick images of the chest were obtained during administration o f approximately 150mL Isovue 370 IV contrast. Coronal and oblique MIP reconstruction images were gene rated and reviewed. Exam utilizes a protocol to evaluate the pulmonary arterial tree. All CT scans are performed using dose optimization technique as appropriate and may include automated exposure control or mA/KV adjustment according to patient size. FINDINGS: No pulmonary emboli are identified. The aorta as imaged shows no acute or suspicious finding. Pericardial effusion is present increased f rom September 07. Pericardial effusion is up to 17 mm in thickness. No new or remnant left lung field infiltrate. A posterior left upper lobe 12 millimeter rounded pleur al abutting nodule has not changed. Two additional small pulmonary nodules of the left upper lobe are fractionally increased from September 07. No left-sided pleural effusion or left-sided pneumothorax. The very large masslike consolidation filling most of the right upper lobe and right middle lobe has shown some interval progression. There is extrinsic compression of upper lobe vasculature and occlus ion of bronchi. No air bronchograms within this large mass. Interstitial and alveolar opacities have progressed in the right lower lobe. This could be a concurrent pneumonia. Malignant etiology is presu med for the dense consolidation. The right lower lobe progression is possibly alveolar spread of carc inoma. Patient has a moderate right-sided pleural effusion that has enlarged. Subcarinal lymphadenopathy is present. Small lymph nodes are seen in the left infrahilar region. The right hilar region is contiguous with the right upper lobe mass. No chest wall masses or abnormal axi llary lymphadenopathy. IMPRESSION: No pulmonary emboli identified. Large consolidated mass of the right upper lobe and right middle lobe has progressed slightly from No vem 5 imaging. Moderate right pleural effusion has developed. Malignancy is the most likely etiology for the right lung field finding rather than pneumonia. It is unknown if this has been subjected to further workup since September 07 CT chest. Significant airspace opacification presentthe right lower lobe progressive from September 07. This coul d be superimposed pneumonia or possibly alveolar spread of carcinoma.
--- NOTE | 2021-09-23 14:23 | RAD REPORT ---
EXAM DESCRIPTION: RAD - Chest Single View - 09/23/2021 1:59 pm CLINICAL HISTORY: Cough;Dyspnea COMPARISON: Two view chest September 03 TECHNIQUE: AP portable chest image was obtained 09/23/2021 1:59 pm . FINDINGS: Patient's known dense consolidated mass lesion of the right lung field is again noted. Rig ht base interstitial and alveolar opacification has progressed since prior imaging. Trachea remains i n the midline. No acute infiltrate in the left lung field. Small left lung field pulmonary nodules ar e stable. Heart and vasculature are normal. No measurable pleural effusion and no pneumothorax. No acute bony abnormality seen. No acute aortic findings suspected. IMPRESSION: Large masslike consolidation in the right lung field. Malignant etiology is favored over pneumonia. It is unknown if the mass has been subjected to further workup since September 07 imaging. Progressive right base opacification could be a concurrent superimposed pneumonia or progression of a presumed malignant process in the right hemithorax.
--- NOTE | 2021-09-23 15:02 | ER ---
Nurse's Notes [facility] Name: David Morris Age: 66 yrs Sex: Male : 1955 Arrival Date: 09/23/2021 Time: 12:21 Bed 8 Private MD: Diagnosis: Dyspnea, unspecified;Lung Malignancy;COPD/ Chronic obstructive pulmonary disease, unspecified Presentation: 09/23 12:29 Chief complaint: Patient states: Since mid July has been having difficulty vg1 breathing. Had covid August 01 and August 16 was negative but breathing has become more difficult since then. States productive cough and vomiting. Coronavirus screen: Vaccine status: Patient reports receiving the 2nd dose of the covid vaccine. Client denies travel out of the [place] in the last 14 days. Ebola Screen: Patient negative for fever greater than or equal to 101.5 degrees Fahrenheit, and additional compatible Ebola Virus Disease symptoms. Initial Sepsis Screen: Does the patient meet any 2 criteria? RR > 20 per min. Does the patient have a suspected source of infection? No. Patient's initial sepsis screen is negative. Risk Assessment: Do you want to hurt yourself or someone else? Patient reports no desire to harm self or others. Onset of symptoms was August 16, 2021. 12:29 Method Of Arrival: Ambulatory vg1 12:29 Acuity: ADITYA 3 vg1 Triage Assessment: 12:32 General: Appears in no apparent distress. uncomfortable, Behavior is calm, cooperative. vg1 Pain: Denies pain. Respiratory: Reports shortness of breath at rest on exertion cough that is productive, labored breathing Breath sounds with crackles in right posterior middle lobe and right posterior lower lobe Breath sounds are diminished bilaterally. Onset: The symptoms/episode began/occurred 08/16/21, the patient has moderate shortness of breath. Historical: - Allergies: 12:32 No Known Allergies; vg1 - Home Meds: 12:32 Janumet oral [Active]; Aspirin Oral [Active]; losartan oral [Active]; Simvastatin Oral vg1 [Active]; Amitriptyline Oral [Active]; Depakote Oral [Active]; tamsulosin oral [Active]; - PMHx: 12:32 Diabetes mellitus; Hypertensive disorder; Seizure; vg1 - Immunization history:: Client reports receiving the 2nd dose of the Covid vaccine. - Social history:: Smoking status: Patient reports the use of cigarette tobacco products, smokes one-half pack cigarettes per day. - Family history:: not pertinent. - Hospitalizations: : No recent hospitalization is reported. Screenin:56 Abuse screen: Denies threats or abuse. Denies injuries from another. Nutritional 5 screening: No deficits noted. Tuberculosis screening: No symptoms or risk factors identified. Fall Risk Secondary diagnosis (15 points) excessively winded when ambulatory . Assessment: 12:59 General: Appears in no apparent distress. slender, Behavior is calm, cooperative, jh5 appropriate for age. Cardiovascular: Rhythm is. 12:59 Respiratory: Airway is patent Respiratory effort is even, labored, Breath sounds with 5 crackles bilaterally. 13:00 Respiratory: Trachea midline Respiratory pattern is symmetrical. jh5 13:00 Neuro: No deficits noted. Level of Consciousness is awake, alert, obeys commands, jh5 Oriented to person, place, time, situation, Appropriate for age Speech is normal. Cardiovascular: Capillary refill < 3 seconds Patient's skin is warm and dry. Rhythm is regular Chest pain is denied. 13:01 Cardiovascular:. 5 Vital Signs: 12:29 BP 112 / 79; Pulse 99; Resp 28; Temp 97.6; Pulse Ox 94% on R/A; Weight 74.84 kg; Height vg1 6 ft. 0 in. (182.88 cm); Pain 0/10; 14:37 BP 116 / 82; Pulse 94; Resp 26; Pulse Ox 96% ; jh5 12:29 Body Mass Index 22.38 (74.84 kg, 182.88 cm) vg1 ED Course: 12:21 Patient arrived in ED. ds1 12:32 Triage completed. vg1 12:32 Arm band placed on. vg1 12:37 Peyman Moses MD is Attending Physician. rn 12:54 Mesha Hannah RN is Primary Nurse. 5 13:01 Patient has correct armband on for positive identification. Bed in low position. Call [facility] light in reach. Side rails up X 1. Adult w/ patient. 13:35 Basic Metabolic Panel Sent. jh5 13:35 Blood Culture Sent. 5 13:36 BMP Sent. 5 13:36 Blood Culture Adult (2) Sent. 5 13:37 monitor tech on. Pulse ox on. NIBP on. jh5 13:37 No provider procedures requiring assistance completed. Inserted saline lock: 18 gauge [facility] in right antecubital area, using aseptic technique. 13:43 CT Chest For PE Angio In Process Unspecified. EDMS 13:56 XRAY CXR (1 view) In Process Unspecified. EDMS 15:00 Nabila Clifton MD is Hospitalizing Provider. rn Administered Medications: 13:25 Drug: SOLU-Medrol (methylPrednisoLONE) 125 mg Route: IVP; Site: right antecubital; [facility] 13:25 Drug: Xopenex (levalbuterol) (3) 1.25 mg Route: Inhalation; [facility] 13:38 Drug: Magnesium Sulfate 1 grams Route: IVPB; Infused Over: 1 hrs; Site: right 5 antecubital; Outcome: 15:01 Decision to Hospitalize by Provider. rn 17:25 Patient left the ED. [facility] Signatures: Dispatcher [employer] EDUT ClarkJohnna ds1 Peyman Moses MD MD rn Garcia, Victoria, RN RN 1 Mesha Hannah RN RN [facility]
--- NOTE | 2021-09-23 15:02 | EDPHYS ---
Physician Documentation [facility] Name: David Morris Age: 66 yrs Sex: Male : 1955 Arrival Date: 09/23/2021 Time: 12:21 Bed 8 Private MD: NATAN Physician Peyman Moses HPI: 09/23 14:46 This 66 yrs old Male presents to ER via Ambulatory with complaints of rn Breathing Difficulty. 14:46 The patient has shortness of breath at rest, with light activity. Onset: The rn symptoms/episode began/occurred 2 month(s) ago. Duration: The symptoms are intermittent. The patient's shortness of breath is aggravated by coughing, exertion, is alleviated by nebulizer treatment. Associated signs and symptoms: Pertinent positives: non-productive cough, hemoptysis, Pertinent negatives: fever. Severity of symptoms: At their worst the symptoms were moderate in the emergency department the symptoms are unchanged. The patient has experienced similar episodes in the past. The patient has been recently seen by a physician:. Patient reports worsening shortness of breath that is worse with exertion over the last 2 months. Told recently that had right lung masses and needs to follow-up with [facility]. Patient with 40+ year smoking history. Reports now having hemoptysis. No other known masses or cancer in body. States helps when uses nebulizer but quickly wears off.. Historical: - Allergies: 12:32 No Known Allergies; vg1 - Home Meds: 12:32 Janumet oral [Active]; Aspirin Oral [Active]; losartan oral [Active]; Simvastatin Oral vg1 [Active]; Amitriptyline Oral [Active]; Depakote Oral [Active]; tamsulosin oral [Active]; - PMHx: 12:32 Diabetes mellitus; Hypertensive disorder; Seizure; vg1 - Immunization history:: Client reports receiving the 2nd dose of the Covid vaccine. - Social history:: Smoking status: Patient reports the use of cigarette tobacco products, smokes one-half pack cigarettes per day. - Family history:: not pertinent. - Hospitalizations: : No recent hospitalization is reported. ROS: 14:46 Constitutional: Positive for weight loss, negative for fever Eyes: Negative for injury, rn pain, redness, and discharge, Neck: Negative for injury, pain, and swelling, Cardiovascular: Negative for chest pain, palpitations, and edema, Respiratory: Positive for cough and shortness of breath, positive for hemoptysis Abdomen/GI: Negative for abdominal pain, nausea, vomiting, diarrhea, and constipation, MS/Extremity: Negative for injury and deformity, Skin: Negative for injury, rash, and discoloration, Neuro: Negative for headache, numbness, tingling, and seizure. 14:46 All other systems are negative. Exam: 14:46 Constitutional: Thin male with tachypnea Head/Face: Normocephalic, atraumatic. Eyes: rn Periorbital areas with no swelling, redness, or edema. Cardiovascular: Regular rate and rhythm. No pulse deficits. Respiratory: Moderate tachypnea, faint wheezing, no retractions Abdomen/GI: Soft, non-tender, nondistended Skin: Warm, dry MS/ Extremity: Pulses equal, no cyanosis. Equal circumference Neuro: Awake and alert, GCS 15, oriented to person, place, time, and situation. Cranial nerves II-XII grossly intact. Motor strength 5/5 in all extremities. Sensory grossly intact. Cerebellar exam normal. Normal gait. Vital Signs: 12:29 BP 112 / 79; Pulse 99; Resp 28; Temp 97.6; Pulse Ox 94% on R/A; Weight 74.84 kg; Height vg1 6 ft. 0 in. (182.88 cm); Pain 0/10; 14:37 BP 116 / 82; Pulse 94; Resp 26; Pulse Ox 96% ; jh5 12:29 Body Mass Index 22.38 (74.84 kg, 182.88 cm) vg1 MDM: 12:37 Patient medically screened. rn 14:58 Differential diagnosis: Anemia Bronchitis Chronic Obstructive Pulmonary Disease rn Myocardial Infarction pneumonia, Pneumothorax pulmonary edema, Pulmonary Embolism Worsening cancer. Data reviewed: vital signs, nurses notes, lab test result(s), EKG, radiologic studies, CT scan, plain films, and as a result, I will admit patient. Data interpreted: Pulse oximetry: on room air is 89 %. Interpretation: hypoxia. Plan: will initiate a nebulizer treatment. Counseling: I had a detailed discussion with the patient and/or guardian regarding: the historical points, exam findings, and any diagnostic results supporting the discharge/admit diagnosis, lab results, radiology results, the need for further work-up and treatment in the hospital. Response to treatment: the patient's symptoms have mildly improved after treatment, and as a result, I will admit patient. Admission orders: after a detailed discussion of the patient's condition and case, the admit orders are written by me. ED course: Patient with mild improvement at rest, but with ambulation desats and increased work of breathing and tachypnea. Will admit given likely COPD on top of his growing lung masses. Patient has appointment to initiate care at [facility] on October.. 09/23 13:00 Order name: BMP rn 09/23 13:00 Order name: Blood Culture Adult (2) rn 09/23 13:00 Order name: CBC with Diff; Complete Time: 14:33 rn 09/23 13:00 Order name: Hepatic Function; Complete Time: 14:33 rn 09/23 13:00 Order name: NT PRO-BNP; Complete Time: 14:33 rn 09/23 13:00 Order name: PT-INR; Complete Time: 14:33 rn 09/23 13:00 Order name: Ptt, Activated; Complete Time: 14:33 09/23 13:00 Order name: Troponin (emerg Dept Use Only); Complete Time: 14:33 rn 09/23 13:00 Order name: Basic Metabolic Panel; Complete Time: 14:33 [facility] 09/23 13:00 Order name: Blood Culture [facility] 09/23 13:01 Order name: COVID-19 SARS RT PCR (Document "Date of Onset" if Symptomatic); Complete rn Time: 14:33 09/23 15:18 Order name: Comprehensive Metabolic Panel [facility] 09/23 15:19 Order name: Comprehensive Metabolic Panel [facility] 09/23 15:19 Order name: Lactate [facility] 09/23 13:00 Order name: CT Chest For PE Angio; Complete Time: 14:33 rn 09/23 13:00 Order name: XRAY CXR (1 view); Complete Time: 14:33 rn 09/23 15:19 Order name: Lactate [facility] 09/23 15:19 Order name: Lipid Profile [facility] 09/23 15:19 Order name: Lipid Profile [facility] 09/23 15:19 Order name: Magnesium EDPA 09/23 15:19 Order name: Magnesium [facility] 09/23 15:19 Order name: NT PRO-BNP [facility] 09/23 15:19 Order name: NT PRO-BNP [facility] 09/23 15:19 Order name: Phosphorus EDMS 09/23 15:19 Order name: Phosphorus EDMS 09/23 15:19 Order name: CBC with Automated Diff EDMS 09/23 15:19 Order name: CBC with Automated Diff EDMS 09/23 15:19 Order name: Echo with Doppler EDMS 09/23 13:00 Order name: EKG; Complete Time: 13:01 rn 09/23 13:00 Order name: Cardiac monitoring; Complete Time: 13:02 rn 09/23 13:00 Order name: EKG - Nurse/Tech; Complete Time: 14:22 rn 09/23 13:00 Order name: IV Saline Lock; Complete Time: 13:36 rn 09/23 13:00 Order name: Labs collected and sent; Complete Time: 13:36 rn 09/23 13:00 Order name: O2 Per Protocol; Complete Time: 13:02 rn 09/23 13:00 Order name: O2 Sat Monitoring; Complete Time: 13:02 rn 09/23 15:18 Order name: CONS Physician Consult EDPA 09/23 15:19 Order name: Heart Healthy EDMS Administered Medications: 13:25 Drug: SOLU-Medrol (methylPrednisoLONE) 125 mg Route: IVP; Site: right antecubital; [facility] 13:25 Drug: Xopenex (levalbuterol) (3) 1.25 mg Route: Inhalation; [facility] 13:38 Drug: Magnesium Sulfate 1 grams Route: IVPB; Infused Over: 1 hrs; Site: right [facility] antecubital; Disposition Summary: 09/23/21 15:01 Hospitalization Ordered Hospitalization Status: Inpatient Admission rn Provider: Nabila Clifton rn Location: Telemetry/MedSurg (Inpatient) rn Condition: Stable rn Problem: an ongoing problem rn Symptoms: are unchanged rn Bed/Room Type: Standard rn Room Assignment: 228(09/23/21 17:03) bd Diagnosis - Dyspnea, unspecified rn - Lung Malignancy rn - COPD/ Chronic obstructive pulmonary disease, unspecified rn Forms: - Medication Reconciliation Form rn - SBAR form rn Signatures: Dispatcher [employer] EDMS Beena Sharpe Roman, MD MD rn Garcia, Victoria RN RN [email or web address] Mesha Hannah RN RN [email or web address] Corrections: (The following items were deleted from the chart) 17:03 15:01 rn bd
[2021-09-23] MEDS ORDERED: ONDANSETRON 4 MG/2 ML VIAL IV PRN (15:15)
[2021-09-23] MEDS ORDERED: ACETAMINOPHEN 500 MG TAB PO PRN (15:15)
[2021-09-23] MEDS: Levofloxacin 750mg IV 750 MG/150 ML BAG IV SCH (16:00)
[2021-09-23] MEDS: IPRATROPIUM BROM 0.5MG/2.5ML NEB SCH ×2 (16:00→19:15)
[2021-09-23] MEDS: ALBUTEROL 2.5 MG/3 ML NEB SOL NEB SCH ×2 (16:00→19:15)
[2021-09-23] MEDS: METHYLPREDNISOLONE 125 MG INJ IV SCH ×2 (17:30→23:03)
[2021-09-23 17:58] VITALS: BMI 21.9
[2021-09-23] MEDS ORDERED: VANCOMYCIN 500 MG in NA CHLORIDE 0.9% 100 ML IVPB ONE (18:45)
[2021-09-23] MEDS: VANCOMYCIN 1.25 GM in NA CHLORIDE 0.9% 250 ML IVPB SCH (21:00)
--- NOTE | 2021-09-23 21:30 | P.HP ---
Certification for Inpatient Patient admitted to: Inpatient With expected LOS: >2 Midnights Patient will require the following post-hospital care: None Practitioner: I am a practitioner with admitting privileges, knowledge of patient current condition, hospital course, and medical plan of care. Services: Services provided to patient in accordance with Admission requirements found in Title 42 Section 412.3 of the Code of Federal Regulations Patient History Date of Service: 09/23/21 Reason for admission: Shortness of breath History of Present Illness: Patient is a 66-year-old gentleman with a 50 pack-year smoking history comes into the hospital with difficulty breathing. Patient states his respiratory status got worse after he had COVID-19 pneumonia. He recovered from that but he still has some respiratory difficulty. It was noted that he had multiple masses that he is following up in the [place] area. He scheduled for a biopsy later next week. Patient came in because he was having a hard time breathing for last 3 days. His respiratory status was worsening and his oxygen level was in the 80s so they came into the hospital. In the emergency room he was noted to be severely tachypneic and satting 70% on room air. Patient was given nebs, steroids, and his clinical symptoms are improving. Patient will be admitted for further evaluation. Allergies No Known Allergies Allergy (Verified 09/23/21 16:29) Home Medications: Amitriptyline [Elavil] 12.5 mg PO DAILY 09/23/21 Aspirin [Aspirin EC 81 MG] 81 mg PO DAILY 09/23/21 Divalproex ER [Depakote *ER*] 250 mg PO BID 09/23/21 Losartan Potassium 25 mg PO BEDTIME 09/23/21 Lysine 500 mg PO BID 09/23/21 Simvastatin 20 mg PO DAILY 09/23/21 Sitagliptin Phos/Metformin HCl [Janumet 50-1,000 mg Tablet] 1 each PO BID 09/23/21 Tamsulosin [Flomax*] 1 cap PO DAILY 09/23/21 Vitamin E (Dl,Tocopheryl Acet) [Vitamin E] 180 mg PO DAILY 09/23/21 - Past Medical/Surgical History Has patient received pneumonia vaccine in the past: Yes Diabetic: Yes -: DM -: HTN -: Seizures -: back sx -: ankle sx -: knee sx -: Prostectomy - Social History Smoking Status: Current every day smoker Alcohol use: No CD- Drugs: No Caffeine use: Yes Place of Residence: Home Review of Systems 10-point ROS is otherwise unremarkable Physical Examination - Vital Signs Temperature: 97.1 F Blood Pressure: 122/69 Pulse: 97 Respirations: 20 Pulse Ox (%): 90 - Physical Exam General: Alert, In no apparent distress, Oriented x3 HEENT: Atraumatic, PERRLA, Mucous membr. moist/pink, EOMI, Sclerae nonicteric Neck: Supple, 2+ carotid pulse no bruit, No LAD, Without JVD or thyroid abnormality Respiratory: Diminished, Crackles/rales (Dry crackles), Expiratory wheezes Cardiovascular: Regular rate/rhythm, Normal S1 S2, No murmurs Gastrointestinal: Normal bowel sounds, Soft and benign, Non-distended, No tenderness Musculoskeletal: No clubbing, No swelling, No tenderness Integumentary: No rashes Neurological: Normal gait, Normal speech, Normal tone, Normal affect, Abnormal strength Lymphatics: No axilla or inguinal lymphadenopathy - Studies Laboratory Data (last 24 hrs) 09/23/21 13:25: PT 12.2, INR 1.06, APTT 31.4 09/23/21 13:25: WBC 5.00, Hgb 12.6 L, Hct 38.4 L, Plt Count 439 H 09/23/21 13:25: Sodium 136, Potassium 4.6, BUN 7, Creatinine 0.81, Glucose 127 H, Total Bilirubin 0.4, AST 19, ALT 12, Alkaline Phosphatase 75 Assessment & Plan - Problems (Diagnosis) (1) COPD with acute exacerbation Current Visit: Yes Status: Acute (2) Lung mass Current Visit: Yes Status: Acute (3) Pulmonary fibrosis Current Visit: Yes Status: Acute (4) Postobstructive pneumonia Current Visit: Yes Status: Acute - Plan Plan: 1. Continue with albuterol and Atrovent nebs 2. Continue with IV steroids 3. Outpatient pulmonary function testing 4. Pulmonary follow-up if symptoms do not improve 5. Room air O2 sats 6. Repeat chest x-ray in the morning 7. Peak flows as needed 8. GI and DVT prophylaxis Discharge Plan: Home Plan to discharge in: Greater than 2 days - Advance Directives Does patient have a Living Will: No Does patient have a Durable POA for Healthcare: No - Code Status/Comfort Care Code Status Assessed: Yes Code Status: Full Code Critical Care: No Time Spent Managing PTS Care (In Minutes): 45
[2021-09-23] MEDS: AMITRIPTYLINE 25 MG TAB PO SCH (23:04)
[2021-09-24] MEDS: ALBUTEROL 2.5 MG/3 ML NEB SOL NEB SCH ×4 (02:00→19:20)
[2021-09-24] MEDS: IPRATROPIUM BROM 0.5MG/2.5ML NEB SCH ×4 (02:00→19:20)
[2021-09-24] MEDS: METHYLPREDNISOLONE 125 MG INJ IV SCH (05:37)
[2021-09-24 05:55] LABS: Absolute Lymphocytes (CBC) 0.6 K/uL (0.7-4.9); Basophils % 0.1 % (0-1.3); Hematocrit 39.5 % (39.6-49.0); Lymphocytes % 8.3 % (15.3-44.8); MPV 7.3 fL (7.6-11.3); RBC Red Blood Cell Count 5.08 M/uL (4.33-5.43)
--- NOTE | 2021-09-24 06:15 | P.PN ---
Subjective Date of Service: 09/24/21 Primary Care Provider: Dr. Wayne Chief Complaint: Shortness of breath Subjective: Improving, Doing well Physical Examination - Vital Signs Temperature: 97.1 F Blood Pressure: 116/56 Pulse: 97 Respirations: 19 Pulse Ox (%): 93 - Studies Laboratory Data (last 24 hrs) 09/23/21 13:25: PT 12.2, INR 1.06, APTT 31.4 09/23/21 13:25: WBC 5.00, Hgb 12.6 L, Hct 38.4 L, Plt Count 439 H 09/23/21 13:25: Sodium 136, Potassium 4.6, BUN 7, Creatinine 0.81, Glucose 127 H, Total Bilirubin 0.4, AST 19, ALT 12, Alkaline Phosphatase 75 Assessment & Plan Discharge Plan: Home Plan to discharge in: 24 Hours Physician Review Additional Text: COVID: Negative CT scan: COMPARISON: Thorax Wo Con dated 09/07/2021 TECHNIQUE: Dynamically enhanced 3 mm thick images of the chest were obtained during administration of approximately 150mL Isovue 370 IV contrast. Coronal and oblique MIP reconstruction images were generated and reviewed. Exam utilizes a protocol to evaluate the pulmonary arterial tree. All CT scans are performed using dose optimization technique as appropriate and may include automated exposure control or mA/KV adjustment according to patient size. FINDINGS: No pulmonary emboli are identified. The aorta as imaged shows no acute or suspicious finding. Pericardial effusion is present increased from September 07. Pericardial effusion is up to 17 mm in thickness. No new or remnant left lung field infiltrate. A posterior left upper lobe 12 millimeter rounded pleural abutting nodule has not changed. Two additional small pulmonary nodules of the left upper lobe are fractionally increased from September 07. No left-sided pleural effusion or left-sided pneumothorax. The very large masslike consolidation filling most of the right upper lobe and right middle lobe has shown some interval progression. There is extrinsic compression of upper lobe vasculature and occlusion of bronchi. No air bronchograms within this large mass. Interstitial and alveolar opacities have progressed in the right lower lobe. This could be a concurrent pneumonia. Malignant etiology is presumed for the dense consolidation. The right lower lobe progression is possibly alveolar spread of carcinoma. Patient has a moderate right-sided pleural effusion that has enlarged. Subcarinal lymphadenopathy is present. Small lymph nodes are seen in the left infrahilar region. The right hilar region is contiguous with the right upper lobe mass. No chest wall masses or abnormal axillary lymphadenopathy. IMPRESSION: No pulmonary emboli identified. Large consolidated mass of the right upper lobe and right middle lobe has progressed slightly from September 07 imaging. Moderate right pleural effusion has developed. Malignancy is the most likely etiology for the right lung field finding rather than pneumonia. It is unknown if this has been subjected to further workup since September 07 CT chest. Significant airspace opacification present the right lower lobe progressive from September 07. This could be superimposed pneumonia or possibly alveolar spread of carcinoma. Physical exam: General: Alert, In no apparent distress, Oriented x3 HEENT: Neck supple Respiratory: Clear anteriorly. Currently on room air Cardiovascular: Regular rate/rhythm, Normal S1 S2, No murmurs Gastrointestinal: Normal bowel sounds, Soft and benign, Non-distended, No tenderness Musculoskeletal: No clubbing, No swelling, No tenderness Integumentary: No rashes Neurological: Normal gait, Normal speech, Normal tone, Normal affect, Abnormal strength Lymphatics: No axilla or inguinal lymphadenopathy Impression: COPD with acute exacerbation with CT scan showing large consolidated mass in the right upper lobe and right middle lobe complicated with moderate right pleural effusion Hypertension Diabetes mellitus type 2 Seizure disorder Hyperlipidemia BPH Plan: COPD with acute exacerbation with CT scan showing large consolidated mass in the right upper lobe and right middle lobe complicated with moderate right pleural effusion: Patient much improved. Pulmonary recommends bronchoscopy to evaluate the consolidated masses. Currently on room air. Pulmonary has changed antib iotics to Augmentin and Levaquin. Pulmonary changed IV solumdreol to oral Prednisone. Continue to wean off oxygen. Echo to be obtained. Prepare for bronchoscopy for the am. Continue with COPD medication and treatment. Anticipate DC home tomorrow after bronchoscopy. Hypertension: Continue losartan. Will monitor and adjust medication. Diabetes mellitus type 2: Continue Janumet. Accu-Cheks in place. Seizure disorder: Continue Depakote 250 mg 1 pill twice daily. Hyperlipidemia: Continue with statin medication BPH: Continue Flomax DVT prophylaxis: Lovenox Code status: Full code Advanced care planning-30 minutes: Home at discharge. Time Spent Managing Pts Care (In Minutes): 55
[2021-09-24 06:24] LABS: Albumin 2.4 g/dL (3.4-5.0); Bilirubin Total 0.4 mg/dL (0.2-1.0); Magnesium 2.5 mg/dL (1.8-2.4); Phosphorus 3.5 mg/dL (2.5-4.9); Potassium 5.1 mmol/L (3.5-5.1); Protein, Total 7.2 g/dL (6.4-8.2)
[2021-09-24] MEDS: VITAMIN E 400 IU CAP PO SCH (08:42)
[2021-09-24] MEDS: ENOXAPARIN 40 MG/0.4 ML SQ SCH (08:42)
[2021-09-24] MEDS: ATORVASTATIN 10 MG TAB PO SCH (08:42)
[2021-09-24] MEDS: DIVALPROEX ER 250 MG TAB PO SCH ×2 (08:43→21:06)
[2021-09-24] MEDS: TAMSULOSIN 0.4 MG SR CAP PO SCH (08:43)
[2021-09-24] MEDS: ASPIRIN EC 81 MG TAB PO SCH (08:43)
[2021-09-24] MEDS: METFORMIN HCL PO SCH ×2 (08:45→21:00)
[2021-09-24] MEDS: VANCOMYCIN 1.25 GM in NA CHLORIDE 0.9% 250 ML IVPB SCH (08:45)
[2021-09-24] MEDS: SITAGLIPTIN PHOS PO SCH ×2 (08:45→21:00)
[2021-09-24] MEDS: AMOX/K CLAV 875 MG TAB PO SCH ×2 (09:15→21:06)
[2021-09-24] MEDS: predniSONE 20 MG TAB PO SCH ×2 (09:16→21:19)
[2021-09-24 10:37] LABS: Blood Morphology Comment NOT SEEN (NOT SEEN); Platelet Estimate INCR; White Blood Cell Scan OK (OK)
--- NOTE | 2021-09-24 12:20 | P.CNS ---
Date of Consult: 09/24/21 Reason for Consult: Lung mass Primary Care Provider: Dr. Wayne Chief Complaint: Shortness of breath History of Present Illness: Patient is 66 years of age admitted with cough congestion worsening shortness of breath he has a large lung mass active smoker Allergies No Known Allergies Allergy (Verified 09/23/21 16:29) Home Medications: Amitriptyline [Elavil] 12.5 mg PO DAILY 09/23/21 Aspirin [Aspirin EC 81 MG] 81 mg PO DAILY 09/23/21 Divalproex ER [Depakote *ER*] 250 mg PO BID 09/23/21 Losartan Potassium 25 mg PO BEDTIME 09/23/21 Lysine 500 mg PO BID 09/23/21 Simvastatin 20 mg PO DAILY 09/23/21 Sitagliptin Phos/Metformin HCl [Janumet 50-1,000 mg Tablet] 1 each PO BID 09/23/21 Tamsulosin [Flomax*] 1 cap PO DAILY 09/23/21 Vitamin E (Dl,Tocopheryl Acet) [Vitamin E] 180 mg PO DAILY 09/23/21 - Past Medical/Surgical History Diabetic: Yes -: DM -: HTN -: Seizures -: History of prostate cancer -: back sx -: ankle sx -: knee sx -: Prostectomy - Social History Smoking Status: Current every day smoker Alcohol use: No CD- Drugs: No Caffeine use: Yes Place of Residence: Home Review of Systems General: Weakness, Other (Significant weight loss) Respiratory: Cough, Shortness of Breath Physical Examination Temp Pulse Resp BP Pulse Ox 97.4 F 94 H 20 114/57 L 94 09/24/21 11:57 09/24/21 11:57 09/24/21 11:57 09/24/21 11:57 09/24/21 11:57 General: Alert, Oriented x3 HEENT: Atraumatic Neck: Supple Respiratory: Other (Markedly diminished air entry on the right side) Cardiovascular: No edema, Regular rate/rhythm, Normal S1 S2 Gastrointestinal: Normal bowel sounds, Soft and benign Laboratory Data (last 24 hrs) 09/23/21 13:25: PT 12.2, INR 1.06, APTT 31.4 09/23/21 13:25: WBC 5.00, Hgb 12.6 L, Hct 38.4 L, Plt Count 439 H 09/23/21 13:25: Sodium 136, Potassium 4.6, BUN 7, Creatinine 0.81, Glucose 127 H, Total Bilirubin 0.4, AST 19, ALT 12, Alkaline Phosphatase 75 - Problems (1) Lung mass Current Visit: Yes Status: Acute Plan: Patient is 66 years of age admitted with cough congestion worsening shortness of breath he has a large lung mass with postobstructive pneumonia on the right side discussed with the patient is most likely cancer he will need a bronchoscopy risks include bleeding infection and lung collapse and he agrees to the procedure meanwhile changed to Augmentin oxygenation is satisfactory stable discharge tomorrow after bronchoscopy on Augmentin and low-dose prednisone labs reviewed white count is normal prognosis poor lung mass was present on on December 2020 has been a significant increase in the size of this lung mass
--- NOTE | 2021-09-24 14:54 | ECHO ---
HEIGHT: 6 ft 0 in WEIGHT: 162 lb 0 oz DATE OF STUDY: 09/24/[address]: Nabila Clifton MD 2-DIMENSIONAL: YES M.MODE: YES DOPPLER: YES COLOR FLOW: YES TDS: NO PORTABLE: NO DEFINITY: NO BUBBLE STUDY: NO DIAGNOSIS: CONGESTIVE HEART FAILURE CARDIAC HISTORY: CATHERIZATION: SURGERY: PROSTHETIC VALVE: PACEMAKER: MEASUREMENTS (cm) DIASTOLIC (NORMALS) SYSTOLIC (NORMALS) IVSd 1.1 (0.6-1.2) LA Diam 3.4 (1.9-4.0) LVEF 60-65% LVIDd 3.7 (3.5-5.7) LVIDs 2.1 (2.0-3.5) %FS 44% LVPWd 0.9 (0.6-1.2) Ao Diam 3.1 (2.0-3.7) 2 DIMENSIONAL ASSESSMENT: RIGHT ATRIUM: NORMAL LEFT ATRIUM: NORMAL RIGHT VENTRICLE: NORMAL LEFT VENTRICLE: NORMAL TRICUSPID VALVE: NORMAL MITRAL VALVE: NORMAL PULMONIC VALVE: NORMAL AORTIC VALVE: NORMAL PERICARDIAL EFFUSION: SMALL TO MODERATE AORTIC ROOT: NORMAL LEFT VENTRICULAR WALL MOTION: NORMAL DOPPLER/COLOR FLOW: SEE BELOW. COMMENTS: NORMAL LEFT VENTRICULAR EJECTION FRACTION 60-65%. NORMAL WALL MOTION. SMALL TO MODERATE PERICARDIAL EFFUSION. TECHNOLOGIST: Yaima WOODARD
[2021-09-24] MEDS: Levofloxacin 750mg IV 750 MG/150 ML BAG IV SCH (15:26)
[2021-09-24] MEDS: AMITRIPTYLINE 25 MG TAB PO SCH (21:00)
[2021-09-24] MEDS ORDERED: LOSARTAN POTASSIUM 50 MG TABLET PO SCH (21:00)
[2021-09-25] MEDS: IPRATROPIUM BROM 0.5MG/2.5ML NEB SCH ×3 (01:35→14:45)
[2021-09-25] MEDS: ALBUTEROL 2.5 MG/3 ML NEB SOL NEB SCH ×3 (01:35→14:45)
--- NOTE | 2021-09-25 05:59 | P.PN ---
Subjective Date of Service: 09/25/21 Primary Care Provider: Dr. Wayne Chief Complaint: Shortness of breath Subjective: Improving, Doing well Physical Examination - Vital Signs Temperature: 97.3 F Blood Pressure: 117/59 Pulse: 96 Respirations: 18 Pulse Ox (%): 92 Assessment & Plan Discharge Plan: Home Plan to discharge in: 24 Hours Physician Review Additional Text: COVID: Negative CT scan: COMPARISON: Thorax Wo Con dated 09/07/2021 TECHNIQUE: Dynamically enhanced 3 mm thick images of the chest were obtained during administration of approximately 150mL Isovue 370 IV contrast. Coronal and oblique MIP reconstruction images were generated and reviewed. Exam utilizes a protocol to evaluate the pulmonary arterial tree. All CT scans are performed using dose optimization technique as appropriate and may include automated exposure control or mA/KV adjustment according to patient size. FINDINGS: No pulmonary emboli are identified. The aorta as imaged shows no acute or suspicious finding. Pericardial effusion is present increased from September 07. Pericardial effusion is up to 17 mm in thickness. No new or remnant left lung field infiltrate. A posterior left upper lobe 12 millimeter rounded pleural abutting nodule has not changed. Two additional small pulmonary nodules of the left upper lobe are fractionally increased from September 07. No left-sided pleural effusion or left-sided pneumothorax. The very large masslike consolidation filling most of the right upper lobe and right middle lobe has shown some interval progression. There is extrinsic compression of upper lobe vasculature and occlusion of bronchi. No air bronchograms within this large mass. Interstitial and alveolar opacities have progressed in the right lower lobe. This could be a concurrent pneumonia. Malignant etiology is presumed for the dense consolidation. The right lower lobe progression is possibly alveolar spread of carcinoma. Patient has a moderate right-sided pleural effusion that has enlarged. Subcarinal lymphadenopathy is present. Small lymph nodes are seen in the left infrahilar region. The right hilar region is contiguous with the right upper lobe mass. No chest wall masses or abnormal axillary lymphadenopathy. IMPRESSION: No pulmonary emboli identified. Large consolidated mass of the right upper lobe and right middle lobe has progressed slightly from September 07 imaging. Moderate right pleural effusion has developed. Malignancy is the most likely etiology for the right lung field finding rather than pneumonia. It is unknown if this has been subjected to further workup since September 07 CT chest. Significant airspace opacification present the right lower lobe progressive from September 07. This could be superimposed pneumonia or possibly alveolar spread of carcinoma. ECHO: MEASUREMENTS (cm) DIASTOLIC (NORMALS) SYSTOLIC (NORMALS) IVSd 1.1 (0.6-1.2) LA Diam 3.4 (1.9-4.0) LVEF 60-65% LVIDd 3.7 (3.5-5.7) LVIDs 2.1 (2.0-3.5) %FS 44% LVPWd 0.9 (0.6-1.2) Ao Diam 3.1 (2.0-3.7) 2 DIMENSIONAL ASSESSMENT: RIGHT ATRIUM: NORMAL LEFT ATRIUM: NORMAL RIGHT VENTRICLE: NORMAL LEFT VENTRICLE: NORMAL TRICUSPID VALVE: NORMAL MITRAL VALVE: NORMAL PULMONIC VALVE: NORMAL AORTIC VALVE: NORMAL PERICARDIAL EFFUSION: SMALL TO MODERATE AORTIC ROOT: NORMAL LEFT VENTRICULAR WALL MOTION: NORMAL DOPPLER/COLOR FLOW: SEE BELOW. COMMENTS: NORMAL LEFT VENTRICULAR EJECTION FRACTION 60-65%. NORMAL WALL MOTION. SMALL TO MODERATE PERICARDIAL EFFUSION. Physical exam: General: Alert, In no apparent distress, Oriented x3 HEENT: Neck supple Respiratory: Clear anteriorly. Currently on room air Cardiovascular: Regular rate/rhythm, Normal S1 S2, No murmurs Gastrointestinal: Normal bowel sounds, Soft and benign, Non-distended, No tenderness Musculoskeletal: No clubbing, No swelling, No tenderness Integumentary: No rashes Neurological: Normal gait, Normal speech, Normal tone, Normal affect, Abnormal strength Lymphatics: No axilla or inguinal lymphadenopathy Impression: COPD with acute exacerbation with CT scan showing large consolidated mass in the right upper lobe and right middle lobe complicated with moderate right pleural effusion Hypertension Diabetes mellitus type 2 Seizure disorder Hyperlipidemia BPH Plan: COPD with acute exacerbation with CT scan showing large consolidated mass in the right upper lobe and right middle lobe complicated with moderate right pleural effusion: Patient doing better at this time. Pulmonology plans for bronchoscopy today. Likely home after bronchoscopy. Continue prednisone. Continue antibiotic therapy. Await recommendations for discharge by pulmonology. Hypertension: Continue losartan. Will monitor and adjust medication. Diabetes mellitus type 2: Continue Janumet. Accu-Cheks in place. Will check A1c. Seizure disorder: Continue Depakote 250 mg 1 pill twice daily. Hyperlipidemia: Continue with statin medication BPH: Continue Flomax DVT prophylaxis: Lovenox Code status: Full code Advanced care planning-30 minutes: Home at discharge. Time Spent Managing Pts Care (In Minutes): 55
[2021-09-25] MEDS: ASPIRIN EC 81 MG TAB PO SCH (07:55)
[2021-09-25] MEDS: ENOXAPARIN 40 MG/0.4 ML SQ SCH (07:55)
[2021-09-25] MEDS: SITAGLIPTIN PHOS PO SCH (08:02)
[2021-09-25] MEDS: predniSONE 20 MG TAB PO SCH (08:02)
[2021-09-25] MEDS: AMOX/K CLAV 875 MG TAB PO SCH (08:02)
[2021-09-25] MEDS: DIVALPROEX ER 250 MG TAB PO SCH (08:02)
[2021-09-25] MEDS: METFORMIN HCL PO SCH (08:02)
[2021-09-25] MEDS: TAMSULOSIN 0.4 MG SR CAP PO SCH (08:02)
[2021-09-25] MEDS: ATORVASTATIN 10 MG TAB PO SCH (08:02)
[2021-09-25] MEDS: VITAMIN E 400 IU CAP PO SCH (08:02)
[2021-09-25] MEDS ORDERED: LIDOCAINE 4% TOP SOLUTION ONE (09:30)
[2021-09-25] MEDS ORDERED: Phenylephrine HCl 10 MG/ML 1 ML VIAL ONE ×2 (09:30→12:33)
[2021-09-25] MEDS ORDERED: D50W 25 GM/50 ML SYRINGE IV PRN (10:21)
[2021-09-25] MEDS ORDERED: GLUCAGON 1 MG/VIAL IM PRN (10:21)
--- NOTE | 2021-09-25 10:31 | P.DS ---
Admission Date: 09/23/21 Discharge Date: 09/25/21 Primary Care Provider: Dr. Wayne Disposition: ROUTINE DISCHARGE Discharge Condition: GOOD Reason for Admission: Shortness of breath Consultations: Pulmonary-Dr. Colindres Procedures: COVID: Negative CT scan: COMPARISON: Thorax Wo Con dated 09/07/2021 TECHNIQUE: Dynamically enhanced 3 mm thick images of the chest were obtained during administration of approximately 150mL Isovue 370 IV contrast. Coronal and oblique MIP reconstruction images were generated and reviewed. Exam utilizes a protocol to evaluate the pulmonary arterial tree. All CT scans are performed using dose optimization technique as appropriate and may include automated exposure control or mA/KV adjustment according to patient size. FINDINGS: No pulmonary emboli are identified. The aorta as imaged shows no acute or suspicious finding. Pericardial effusion is present increased from September 07. Pericardial effusion is up to 17 mm in thickness. No new or remnant left lung field infiltrate. A posterior left upper lobe 12 millimeter rounded pleural abutting nodule has not changed. Two additional small pulmonary nodules of the left upper lobe are fractionally increased from September 07. No left-sided pleural effusion or left-sided pneumothorax. The very large masslike consolidation filling most of the right upper lobe and right middle lobe has shown some interval progression. There is extrinsic compression of upper lobe vasculature and occlusion of bronchi. No air bronchograms within this large mass. Interstitial and alveolar opacities have progressed in the right lower lobe. This could be a concurrent pneumonia. Malignant etiology is presumed for the dense consolidation. The right lower lobe progression is possibly alveolar spread of carcinoma. Patient has a moderate right-sided pleural effusion that has enlarged. Subcarinal lymphadenopathy is present. Small lymph nodes are seen in the left infrahilar region. The right hilar region is contiguous with the right upper lobe mass. No chest wall masses or abnormal axillary lymphadenopathy. IMPRESSION: No pulmonary emboli identified. Large consolidated mass of the right upper lobe and right middle lobe has progressed slightly from September 07 imaging. Moderate right pleural effusion has developed. Malignancy is the most likely etiology for the right lung field finding rather than pneumonia. It is unknown if this has been subjected to further workup since September 07 CT chest. Significant airspace opacification present the right lower lobe progressive from September 07. This could be superimposed pneumonia or possibly alveolar spread of carcinoma. ECHO: MEASUREMENTS (cm) DIASTOLIC (NORMALS) SYSTOLIC (NORMALS) IVSd 1.1 (0.6-1.2) LA Diam 3.4 (1.9-4.0) LVEF 60-65% LVIDd 3.7 (3.5-5.7) LVIDs 2.1 (2.0-3.5) %FS 44% LVPWd 0.9 (0.6-1.2) Ao Diam 3.1 (2.0-3.7) 2 DIMENSIONAL ASSESSMENT: RIGHT ATRIUM: NORMAL LEFT ATRIUM: NORMAL RIGHT VENTRICLE: NORMAL LEFT VENTRICLE: NORMAL TRICUSPID VALVE: NORMAL MITRAL VALVE: NORMAL PULMONIC VALVE: NORMAL AORTIC VALVE: NORMAL PERICARDIAL EFFUSION: SMALL TO MODERATE AORTIC ROOT: NORMAL LEFT VENTRICULAR WALL MOTION: NORMAL DOPPLER/COLOR FLOW: SEE BELOW. COMMENTS: NORMAL LEFT VENTRICULAR EJECTION FRACTION 60-65%. NORMAL WALL MOT ION. SMALL TO MODERATE PERICARDIAL EFFUSION. Medical Problem List: COPD with acute exacerbation with CT scan showing large consolidated mass in the right upper lobe and right middle lobe complicated with moderate right pleural effusion and small to moderate pericardial fusion on echocardiogram status post bronchoscopy suspect lung carcinoma Hypertension Diabetes mellitus type 2 Seizure disorder Hyperlipidemia BPH Brief History of Present Illness: 66-year-old male with history of tobacco abuse presented to the emerge ncy room with increasing shortness of breath. Patient with history of Covid pneumonia in the past. Patient was found to have abnormal chest x-ray. He was to follow-up with specialist up in [place]. He had more difficulty breathing and came in for treatment. Hospital Course: Patient presented with increasing shortness of breath secondary to COPD exacerbation. CT scan revealed large consolidated mass in the right upper lobe and right middle lobe complicated with moderate right pleural effusion. Patient was treated in the course of his stay. Patient was seen by pulmonology. Pulmonology recommended bronchoscopy to further evaluate. Echocardiogram performed showed small to moderate pericardial effusion. Ejection fraction within normal range. Pulmonology reported large mass to the right upper lobe on bronchoscopy. Lung carcinoma is suspected. Patient tolerated bronchoscopy. At discharge patient without significant shortness of breath. Patient was yen luated for home oxygen. Patient qualified for oxygen. At discharge patient will continue with 2 L per nasal cannula to maintain sats above 93%. Patient at discharge patient will continue with Augmentin 875 mg 1 pill twice daily for 7 days. The patient will also continue with prednisone 10 mg 1 pill twice daily for 7 days then 1 pill once daily for 7 days. At discharge patient should also continue with COPD medicationSymbicort 2 puffs twice daily and albuterol 2 puffs 3 times a day as needed for shortness of breath. Recommend follow-up with pulmonology within 1 week to follow-up bronchoscopy and pathology report. Recommend to recheck echocardiogram in 2 to 4 weeks to monitor resolution of pericardial effusion. Further recommendations will come from pulmonology. Patient would likely require oncology evaluation as an outpatient if pathology shows lung carcinoma. This can be further addressed by pulmonology or his PCP. Patient with hypertension. At discharge patient will continue with losartan 25 mg daily and aspirin 81 mg daily. Recommend to maintain blood pressure less than 130/80. Further adjustment can be done by his PCP. Patient with diabetes mellitus type 2. At discharge patient may continue with Janumet mg 1 pill twice daily. Recommend to maintain blood sugar less than 140 fasting and less than 200 mils. Further adjustment can be done by his PCP. Recommend recheck hemoglobin A1c every 3 months to monitor his progress. Patient with seizure disorder. At discharge patient will continue with Depakote 250 mg mg 1 pill twice daily. Can also takes Elavil 12.5 mg at bedtime. Patient with hyperlipidemia. At discharge patient will continue with Zocor 20 mg daily Patient with BPH. At discharge patient will continue with Flomax 0.4 mg daily. Vital Signs/Physical Exam: Temp Pulse Resp BP Pulse Ox 97.3 F 96 H 18 117/59 L 92 09/25/21 10:26 09/25/21 10:26 09/25/21 10:26 09/25/21 10:26 09/25/21 10:26 General: Alert, In no apparent distress, Oriented x3, Cooperative HEENT: Atraumatic Neck: Supple Respiratory: Clear to auscultation bilaterally, Normal air movement Cardiovascular: Normal pulses, Regular rate/rhythm Gastrointestinal: Normal bowel sounds, No tenderness, No masses, No rebound, No guarding Musculoskeletal: No erythema, No tenderness, No warmth Integumentary: No tenderness/swelling, No erythema, No warmth, No cyanosis Neurological: Normal speech, Normal strength at 5/5 x4 extr, Normal tone, Normal affect Laboratory Data at Discharge: WBC 6.60 K/uL (4.3-10.9) D 09/24/21 05:41 Hgb 12.9 g/dL (13.6-17.9) L 09/24/21 05:41 Hct 39.5 % (39.6-49.0) L 09/24/21 05:41 Plt Count 523 K/uL (152-406) H 09/24/21 05:41 PT 12.2 SECONDS (9.5-12.5) 09/23/21 13:25 INR 1.06 09/23/21 13:25 APTT 31.4 SECONDS (24.3-36.9) 09/23/21 13:25 Sodium 132 mmol/L (136-145) L 09/24/21 05:41 Potassium 5.1 mmol/L (3.5-5.1) 09/24/21 05:41 BUN 12 mg/dL (7-18) 09/24/21 05:41 Creatinine 0.93 mg/dL (0.55-1.3) 09/24/21 05:41 Glucose 376 mg/dL (74-106) H 09/24/21 05:41 Phosphorus 3.5 mg/dL (2.5-4.9) 09/24/21 05:41 Magnesium 2.5 mg/dL (1.8-2.4) H 09/24/21 05:41 Total Bilirubin 0.4 mg/dL (0.2-1.0) 09/24/21 05:41 AST 15 U/L (15-37) 09/24/21 05:41 ALT 14 U/L (12-78) 09/24/21 05:41 Alkaline Phosphatase 71 U/L (45-117) 09/24/21 05:41 Triglycerides 99 mg/dL (<150) 09/24/21 05:41 Cholesterol 119 mg/dL (<200) 09/24/21 05:41 HDL Cholesterol 51 mg/dL (40-60) 09/24/21 05:41 Cholesterol/HDL Ratio 2.33 09/24/21 05:41 Home Medications: Amitriptyline [Elavil*] 12.5 mg PO DAILY 09/23/21 Aspirin [Aspirin EC 81 MG] 81 mg PO DAILY 09/23/21 Divalproex ER [Depakote *ER] 250 mg PO BID 09/23/21 Losartan Potassium 25 mg PO BEDTIME 09/23/21 Lysine 500 mg PO BID 09/23/21 Simvastatin 20 mg PO DAILY 09/23/21 Sitagliptin Phos/Metformin HCl [Janumet 50-1,000 mg Tablet] 1 each PO BID 09/23/21 Tamsulosin [Flomax*] 1 cap PO DAILY 09/23/21 Vitamin E (Dl,Tocopheryl Acet) [Vitamin E] 180 mg PO DAILY 09/23/21 Albuterol Inhaler [Ventolin Inhaler*] 2 puff IH TID PRN #1 hfa.aer.ad 09/25/21 Amox/Clavulanate [Augmentin 875-125 Tab*] 875 mg PO BID #14 tab 09/25/21 Budesonide/Formoterol Fumarate [Symbicort 160-4.5 Mcg Inhaler] 2 puff IH BID #1 hfa.aer.ad 09/25/21 predniSONE [Deltasone*] 10 mg PO SEECOM #21 tab 09/25/21 New Medications: Amox/Clavulanate [Augmentin 875-125 Tab*] 875 mg PO BID #14 tab predniSONE [Deltasone*] 10 mg PO SEECOM #21 tab Budesonide/Formoterol Fumarate [Symbicort 160-4.5 Mcg Inhaler] 2 puff IH BID #1 hfa.aer.ad Albuterol Inhaler [Ventolin Inhaler*] 2 puff IH TID PRN #1 hfa.aer.ad PRN Reason: Shortness Of Breath Physician Discharge Instructions: Patient presented with increasing shortness of breath secondary to COPD exacerbation. CT scan revealed large consolidated mass in the right upper lobe and right middle lobe complicated with moderate right pleural effusion. Patient was treated in the course of his stay. Patient was seen by pulmonology. Pulmonology recommended bronchoscopy to further evaluate. Echocardiogram per formed showed small to moderate pericardial effusion. Ejection fraction within normal range. Pulmonology reported large mass to the right upper lobe on bronchoscopy. Lung carcinoma is suspected. Patient tolerated bronchoscopy. At discharge patient without significant shortness of breath. Patient was evaluated for home oxygen. Patient qualified for oxygen. At discharge patient will continue with 2 L per nasal cannula to maintain sats above 93%. Patient at discharge patient will continue with Augmentin 875 mg 1 pill twice daily for 7 days. The patient will also continue with prednisone 10 mg 1 pill twice daily for 7 days then 1 pill once daily for 7 days. At discharge patient should also continue with COPD medicationSymbicort 2 puffs twice daily and albuterol 2 puffs 3 times a day as needed for shortness of breath. Recommend follow-up with pulmonology within 1 week to follow-up bronchoscopy and pathology report. Recommend to recheck echocardiogram in 2 to 4 weeks to monitor resolution of pericardial effusion. Further recommendations will come from pulmonology. Patient would likely require oncology evaluation as an outpatient if pathology shows lung carcinoma. This can be further addressed by pulmonology or his PCP. Patient with hypertension. At discharge patient will continue with losartan 25 mg daily and aspirin 81 mg daily. Recommend to maintain blood pressure less than 130/80. Further adjustment can be done by his PCP. Patient with diabetes mellitus type 2. At discharge patient may continue with Janumet mg 1 pill twice daily. Recommend to maintain blood sugar less than 140 fasting and less than 200 mils. Further adjustment can be done by his PCP. Recommend recheck hemoglobin A1c every 3 months to monitor his progress. Patient with seizure disorder. At discharge patient will continue with Depakote 250 mg mg 1 pill twice daily. Can also takes Elavil 12.5 mg at bedtime. Patient with hyperlipidemia. At discharge patient will continue with Zocor 20 mg daily Patient with BPH. At discharge patient will continue with Flomax 0.4 mg daily. Diet: ADA Activity: Ad albertina Followup: Sendy Wayne FNP [Primary Care Provider] - Time spent managing pt's care (in minutes): 55
[2021-09-25] MEDS: INSULIN -REGULAR HUMAN 50 UNIT/0.5 ML ML SQ SCH ×2 (11:30→17:46)
[2021-09-25] MEDS ORDERED: NA CHLORIDE 0.9% 1,000 ML ONE (11:37)
[2021-09-25] MEDS ORDERED: ALBUTEROL 2.5 MG/3 ML NEB SOL ONE (11:37)
[2021-09-25] MEDS ORDERED: INSULIN -REGULAR HUMAN 50 UNIT/0.5 ML ML ONE (11:43)
[2021-09-25] MEDS ORDERED: LIDOCAINE VISCOUS 2% SOLN 15 ML UDC ONE (12:21)
[2021-09-25] MEDS ORDERED: LIDOCAINE 1% MPF 30 ML VIAL ONE (12:21)
[2021-09-25] MEDS ORDERED: LIDOCAINE 1% MPF 5 ML VIAL ONE (12:33)
[2021-09-25] MEDS ORDERED: NS 0.9% VIAL 0 ML ONE (12:33)
[2021-09-25] MEDS ORDERED: propofoL 200 MG/20 ML VIAL IV ONE (12:33)
--- NOTE | 2021-09-25 14:33 | RAD REPORT ---
EXAM DESCRIPTION: RAD - Chest Single View - 09/25/2021 2:22 pm CLINICAL HISTORY: one hour s/p bronchoscopy, right lung mass COMPARISON: September 23 TECHNIQUE: AP portable chest image was obtained 09/25/2021 2:22 pm . FINDINGS: Post bronchoscopy chest film shows no pneumothorax. Extensive right hemithorax opacificati on is present. No new left lung field finding. IMPRESSION: No post bronchoscopy pneumothorax.
[2021-09-25 15:33] VITALS: O2SAT 88
--- NOTE | 2021-09-25 15:50 | P.OP ---
Date of Service: 09/25/21 (Bronchoscopy with endobronchial biopsy,BAL and Wire brushing) Findings and Operative Technique Age 66 AW large lung mass Aftee obataing an informed consent from pt premedicated by anesthesia Finding normal vocal cords and carini. 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 Extensive tumor infiltration of R lung/ Multiple biopsies obtained/ Pt tolerated procedure vey well
[2021-09-25 18:08] VITALS: BP 122/57; TEMP 97.2
[2021-09-25] MEDS ORDERED: predniSONE 10 MG TAB PO SCH (21:00)
--- NOTE | 2021-09-26 08:11 | EKG ---
Test Date: 2021-09-23 Test Time: 14:16:31 [employer]: DUYEN MEASUREMENT RESULTS: Intervals: Rate: 90 [place]: 184 QRSD: 70 QT: 346 QTc: 423 [place]: P: 71 [place]: 184 QRS: -18 T: 76 INTERPRETIVE STATEMENTS: Normal sinus rhythm Possible Left atrial enlargement Nonspecific ST and T wave abnormality Abnormal ECG No previous ECG available for comparison Electronically Signed On 09-26-21 08:04:12 [employer] by Placido Martinez
[2021-09-26] MEDS ORDERED: levoFLOXacin 750 MG TAB PO SCH (09:00)
== END 2021-09-25 20:00 | disposition home or self-care (01) | DRG 191 ==
LOC: ER 12:20 → ERHOLD 15:41 → 2ND 17:19
PROVIDERS: ADMIT Hospitalist; ATTEND Hospitalist
PROC: 0B9C8ZX Drainage of Right Upper Lung Lobe, Via Natural or Artificial Opening Endoscopic, Diagnostic (ICD-10-PCS; 2021-09-25)
PROC: 0BDC8ZX Extraction of Right Upper Lung Lobe, Via Natural or Artificial Opening Endoscopic, Diagnostic (ICD-10-PCS; principal; 2021-09-25 12:00)
DX: J44.1 Chronic obstructive pulmonary disease with (acute) exacerbation (principal); J90 Pleural effusion, not elsewhere classified; I31.3 Pericardial effusion (noninflammatory); C34.2 Malignant neoplasm of middle lobe, bronchus or lung; C34.11 Malignant neoplasm of upper lobe, right bronchus or lung; I10 Essential (primary) hypertension; E11.9 Type 2 diabetes mellitus without complications; G40.909 Epilepsy, unspecified, not intractable, without status epilepticus; E78.5 Hyperlipidemia, unspecified; N40.0 Benign prostatic hyperplasia without lower urinary tract symptoms; Z87.891 Personal history of nicotine dependence; Z86.16 Personal history of COVID-19; Z20.822 Contact with and (suspected) exposure to COVID-19
CPT/HCPCS: 36415; 71045; 71275; 80048; 80053; 80061; 80076; 82565; 82947; 83036; 83605; 83735; 83880; 84100; 84484; 85025; 85610; 85730; 87040; 88108; 88305; 93005; 93306; 94640; 94760; 96374; 96375; 99285; J1650; J2370; J2704; J2930; J3370; J3475; J7030; J7050; J7512; Q9967; U0003

== ENCOUNTER 2021-10-18 09:38 | Emergency (ER) | payer BC ==
--- OUTSIDE RECORDS SUMMARY | 2021-10-18 09:44 | XMS REPORT | Clinical Summary ---
:1955 Author Organization [facility] MD [facility] Address [address] [place] [address] Care Team Providers Name Role Phone Rosana [facility] Allergies Not on File Medications Not on file Active Problems Not on file Encounters Date Type Specialty Care Team Description 10/03/2021 Ancillary Procedure Radiology Cancer 10/03/2021 Ancillary Procedure Radiology Cancer after 10/18/2020 Social History Tobacco Use Types Packs/Day Years Used Date Never Assessed Sex Assigned at Date Recorded Not on file Job Start Date Occupation Industry Not on file Not on file Not on file Last Filed Vital Signs Not on file Plan of Treatment Not on file Procedures Procedure Name Priority Date/Time Associated Diagnosis Comme nts OSI CT CHEST Routine 09/07/2021 2:40 PM Cancer Results for this CDT procedure are i n the results section . OSI CHEST Routine 09/03/2021 2:40 PM Cancer Results for this CDT procedure are i n the results section . after 10/18/[address] Chest (09/07/2021 2:40 PM CDT) Specimen Narrative Systemgenerated, Documentation - 021 2:40 PM [employer] Study acquired at another institution. For comparison only. No MD Giorgi originated interpretation requested or a vailable. OSI Chest (09/03/2021 2:40 PM CDT) Specimen Narrative Systemgenerated, Documentation - 021 2:40 PM [employer] Study acquired at another institution. For comparison only. No MD Giorgi originated interpretation requested or a vailable. after 10/18/2020 Insurance Payer Benefit Plan / Subscriber ID Effective Dates Phone Addre ss Type Group [employer] [place] HMO [id number] 2017-Present [id number] O [facility] [place] [employer] [id number] Care Teams Frame Catcher Relationship Specialty Start Date End Date Sendy Wayne PCP - External Primary Care 09/10/21 Provider
--- OUTSIDE RECORDS SUMMARY | 2021-10-18 09:45 | XMS REPORT | Continuity of Care Document ---
:1955 Author Organization [facility] t Address [address] [place] [address] Care Team Providers Name Role Phone [phone] Primary Care Physician Unavailable SYSTEM, NOT IN Attending Clinician Unavailable JOSIE Attending Clinician Unavailable Tony WILLS Attending Clinician TONY Attending Clinician Unavailable JOSIE Admitting Clinician Unavailable Payers Payer Name Policy Type Policy Number Effective Date Expiration Date Katarina velarde [facility] [place] [id number] 2016 HEALTHCARE 00:00:00 BLUE CROSS BLUE [id number] 2017 MD Franky brown [facility] 00:00:00 HMO BLUE/BLUE ESSENTIALSxxxxxx [id number] 2016-P [address], [place] [address]KKA [facility] [id number] 2017 BLUE/ESSENTIALS 00:00:00 Problems Condition Condition Condition Status Onset Resolution Last Treating Co mments Source Name Details Category Date Date Treatment Clinician Date No known No known Disease Unive rs active active ity of problems problems [facility] Allergies, Adverse Reactions, Alerts Allergy Allergy Status Severity Reaction(s) Onset Inactive Treating Comm ents Source Name Type Date Date Clinician NO KNOWN Drug Active Univers ALLERGIE Class [facility] NO KNOWN Allergy Active [facility]GIE [facility] Social History Social Habit Start Date Stop Date Quantity Comments Source Exposure to Not sure [facility] SARS-CoV-2 (event) Medica l Branch Sex Assigned At [birth year] MD Lyles on 00:00:00 00:00:00 Smoking Status Start Date Stop Date Source Unknown if ever smoked [facility] Medications Ordered Filled Start Stop Current Ordering Indication Dosage Frequency Signature Comments Components Source Medication Medication Date Date Medication? Clinician (SIG) Name Name sitagliptin Yes Take by Un [facility] phos/metfor 2-13 mouth. ity of min HCl 00:31: [place] (JANUMET 03 Medical ORAL) Branch losartan Yes Take by Unive rs potassium 2-13 mouth. ity of (LOSARTAN 00:31: [place] ORAL) Medical Branch SIMVASTATIN Yes Take by Un [facility] ORAL 2-13 mouth. ity of 00:31: [address] Branch Sildenafil Sildenafil 2020- No Mary [address] [facility] Citrate Citrate 07-04 09-26 Alexis as needed [facility] Plavix Plavix 2018-11 Yes Mary [address] [facility] 0[facility]17 [facility] Aspirin Aspirin 2018-11 Yes Mary [address] 0[facility] 00 [facility] Augmentin Augmentin Yes Mary [address] [facility] 9-20 [place] [facility] 00 l Outpat[facility] ent Clinics Janumet Janumet Yes Mary [address] [facility] [place] with meals [facility] Simvastatin Simvastatin Yes Mary [address] [facility] [place] in the [facility] evening [facility] Cozaar Cozaar Yes Mary [address] [facility] [place] [facility] Elavil Elavil Yes Mary 0.[address] [facility] Anoro Anoro Yes Mary [address] [facility] Ellipta Ellipta [place] [facility] Aspirin Aspirin Yes Mary [address] [facility] ProAir HFA ProAir HFA Yes Mary [address] [facility] Alexis needed [facility] Vital Signs Vital Name Observation Time Observation Value Comments Source HEIGHT 2020-12-28 07:50:00 182.9 cm WEIGHT 2020-12-28 07:50:00 82.2 kg HEIGHT 2020-12-15 15:00:00 182.9 cm WEIGHT 2020-12-15 15:00:00 83.915 kg HEIGHT 2020-12-28 07:50:00 182.9 cm WEIGHT 2020-12-28 07:50:00 82.2 kg HEIGHT 2020-12-15 15:00:00 182.9 cm WEIGHT 2020-12-15 15:00:00 83.915 kg Oxygen saturation in 2020-12-16 00:32:00 96 /min [facility] Arterial blood by [facility] Pulse oximetry Branch Systolic blood 2020-12-16 00:32:00 140 mm[Hg] Univer sity of pressure [facility] Diastolic blood 2020-12-16 00:32:00 85 mm[Hg] [facility] 2020-12-16 00:32:00 81 /min [facility] Respiratory rate 2020-12-16 00:32:00 19 /min [facility] Body temperature 2020-12-15 22:15:00 36.06 Suzette [facility] Body height 2020-12-15 22:15:00 182.9 cm [facility] Body weight 2020-12-15 22:15:00 84.369 kg [facility] BMI 2020-12-15 22:15:00 25.23 kg/m2 [facility] Procedures Procedure Date / Time Performed Performing Clinician Sourc e OSI CT CHEST 2021-09-07 19:40:00 Sendy Wayne MD OSI CHEST 2021-09-03 19:40:00 Sendy Wayne MD NOTICE OF PRIVACY 2020-12-16 00:42:11 Doctor Unassigned, No [facility] PRACTICES Name Medical Branch CONSENT/REFUSAL FOR 2020-12-16 00:41:54 Doctor Unassigned, No [facility] DIAGNOSIS AND Name Medical Branch TREATMENT ADC / LCC - DRUG 2020-12-15 23:47:00 Taylor Jimenez [facility] SCREEN TRIAGE Medical Branch COVID-19 (ID NOW RAPID 2020-12-15 23:13:00 Taylor Jimenez [facility] TESTING) Medical Branch CT HEAD WO CONTRAST 2020-12-15 22:53:16 Taylor Jimenez [facility] CREATINE KINASE 2020-12-15 22:28:00 [facility] 2020-12-15 22:28:00 Taylor Jimenez [facility] ([id number]) Medical Branch (ALB,T.PRO,BILI T,BU/BC,ALT,AST,ALK PHOS) BASIC METABOLIC PANEL 2020-12-15 22:28:00 Taylor Jimenez [facility] (NA, K, CL, CO2, Medical Branch GLUCOSE, BUN, CREATININE, CA) CBC WITH DIFF 2020-12-15 22:28:00 Tony [facility] URINALYSIS 2020-12-15 22:28:00 Jimenez, [facility] Encounters Start End Encounter Admission Attending Care Care Encounter Source Date/Time Date/Time Type Type Clinicians Facility Department ID 2021-09-10 Outpatient SYSTEM, HIMANSHU DOWNS [id number] 17:20:06 PROVIDER Rafal stevenson 2021-08-10 Inpatient [place], [facility] Surgery [id number] [facility] 22:56:28 NICCI 2021-10-11 2021-10-11 ambulatory [id number] 2021-10-11 2021-10-11 ambulatory [facility] [id number] [facility] 2021-10-03 2021-10-03 Outpatient EL HIMANSHU DOWNS [id number] 12:46:13 12:46:13 Rafal o n 2021-10-03 2021-10-03 Outpatient [facility] [id number] MD 12:46:12 12:46:12 Rafal o n 2021-09-04 2021-09-04 ambulatory [facility] [id number] [facility] 2021-09-03 2021-09-03 ambulatory [facility] [id number] [facility] 2021-09-03 2021-09-03 ambulatory [facility] [id number] [facility] 2021-07-04 2021-07-04 Outpatient [facility] [id number] [facility] 2021-06-06 2021-06-06 Outpatient [facility] [id number] [facility] 2021-05-16 2021-05-16 Outpatient [facility] [id number] [facility] 2021-05-09 2021-05-09 Outpatient [facility] [id number] [facility] 2021-04-17 2021-04-17 Outpatient [facility] [id number] [facility] 2021-02-07 2021-02-07 Outpatient [facility] [id number] [facility] 2021-02-01 2021-02-01 Outpatient [facility] [id number] [facility] 2021-01-10 2021-01-10 Outpatient [facility] [id number] [facility] 2021-01-02 2021-01-02 Outpatient [facility] [id number] [facility] 2020-12-29 2020-12-29 Outpatient [facility] [id number] [facility] 2020-12-29 2020-12-29 Outpatient [facility] [id number] [facility] 2020-12-27 2020-12-27 Outpatient [facility] [id number] [facility] 2020-12-27 2020-12-27 Outpatient [facility] [id number] [facility] 2020-12-25 2020-12-25 Outpatient EL [facility] [id number] [facility] 00:00:00 00:00:00 2020-12-25 2020-12-25 Outpatient EL [facility] [id number] [facility] 00:00:00 00:00:00 2020-12-25 2020-12-25 Outpatient EL [facility] [id number] [facility] 00:00:00 00:00:00 2020-12-22 2020-12-22 Outpatient EL [facility] [id number] [facility] 00:00:00 00:00:00 2020-12-22 2020-12-22 Outpatient [facility] [id number] [facility] 2020-12-22 2020-12-22 Outpatient [facility] [id number] [facility] 2020-12-21 2020-12-21 Outpatient [facility] [id number] [facility] 2020-12-15 2020-12-15 Emergency [facility] [id number] Univers 16:14:00 18:40:00 Taylor Benjamin [id number] i ty [facility] [id number] [facility] [id number] [place] [address] Branch 2020-12-15 2020-12-15 Emergency [facility] [id number] Univers 16:14:00 16:14:00 TAYLOR [facility] 2020-12-15 2020-12-15 Outpatient EL SLE[facility] SLE [id number] [facility] 00:00:00 00:00:00 2020-12-15 2020-12-15 Outpatient [facility] [id number] [facility] 2020-11-13 2020-11-13 [facility] [id number] [facility] 2020-10-04 2020-10-04 [facility] [id number] [facility] 2020-08-28 2020-08-28 Outpatient [facility] [id number] [facility] 2020-08-28 2020-08-28 Outpatient [facility] [id number] [facility] 2020-08-10 2020-08-10 Outpatient [facility] [id number] [facility] 2020-08-01 2020-08-01 Outpatient [facility] [id number] [facility] 2020-07-25 2020-07-25 Outpatient [facility] [id number] [facility] 2020-07-25 2020-07-25 Outpatient [facility] [id number] [facility] 2020-07-04 2020-07-04 [facility] [id number] [facility] 09:45:00 09:45:00 t Specialty/U Evon kes - Specialty rology Memori a /Urology Clinic l Clinic Outpati ent Clinics 2020-06-28 2020-06-28 [facility] [id number] 08:00:00 08:00:00 t Mckittrick Mckittrick [employer] s - Drive [facility] l Medicine Outpati ent Clinics 2020-03-28 2020-03-28 [facility] [id number] 15:00:00 15:00:00 t Mckittrick Mckittrick [employer] s - Drive [facility] l Medicine Outpati ent Clinics 2020-03-15 2020-03-15 [facility] [id number] 10:20:00 10:20:00 t Mckittrick M[employer] Luke s - Drive [facility] Medicine l Medicine Outpati ent Clinics 2019-10-05 2019-10-05 [facility] [id number] 15:10:00 15:10:00 t Mckittrick Mck[employer] s - Drive [facility] Medicine l Medicine Outpati ent Clinics 2019-09-16 2019-09-16 [facility] [id number] 08:01:00 08:01:00 t Mckittrick M[employer] s - Drive [facility] Medicine l Medicine Outpati ent Clinics 2019-09-10 2019-09-10 [facility] [id number] 17:17:00 17:17:00 t Mckittrick [employer] s - Drive [facility] l Medicine Outpati ent Clinics 2019-08-19 2019-08-19 [facility] [id number] 08:00:00 08:00:00 t Mckittrick [employer] s - Drive [facility] l Medicine Outpati ent Clinics 2019-08-18 2019-08-18 [facility] [id number] 11:08:00 11:08:[address] Luke s - Drive [facility] Outpati ent Clinics 2019-02-16 2019-02-16 [facility] [id number] 16:12:00 16:12:[address] Luke s - Drive [facility] Outpati ent Clinics 2018-10-08 2018-10-08 [facility] [id number] 09:00:00 09:00:[address] ke s - Drive [facility] Outpati ent Clinics 2018-07-23 2018-07-23 [facility] [id number] 11:00:00 11:00:[address] s Drive [facility] Outpati ent Clinics 2018-03-24 2018-03-24 [facility] [id number] 08:15:00 08:15:00 [facility] Results Test Description Test Time Test Comments Results Result [facility] e Comments TISSUE EXAM 2021-01-02 Surgical Pathology 16:14:00 Report Case: [id number] Authorizing Provider: Nicci Palumbo MD Collected: 12/28/2020 10:34 AM Ordering Location: [facility] PERIOPERATIVE Received: 12/28/2020 02:22 PM SERVICES Pathologist: [...] PATHOLOGIC DIAGNOSIS Signing Pathologist Direct Phone Line: [phone] ally signed by Jj Arriaga MD on [...] neoplasia (PIN) Additional Findings: Nodular prostatic hyperplasia 41010, 15174 X 2, 04109Gmgrazzig cancer A. Soft tissue, otherB. Lymph node, [...] as follows:Section codeC1-1 lymph node, bisectedC2-3 lymph lkgwdU6-K5-usrwllcwv of soft tissuePilar REN Amaya HT (ASCP)Mili. Received as radical prostatectomy specimen in formalin with patient name, Laure Mooney with the accession number [id number] is a prostate with bilateral seminal vesicles [...] vas deferentia are submitted in cassette D9. /[facility]/plPerformed. POCT-GLUCOSE METER 2020-12-29 11:23:00 Test Item Value Reference Range Interpretation Comme nts POC-GLUCOSE METER (BEAKER) 314 mg/dL 70-110 H : TESTED AT [facility] [address] (test code = 1538) [place], [address]: Plexiglas Former/Techni aaliyah ID = [id number] for IAN VIEIRA BASIC METABOLIC [id number] 05:48:00 Test Item Value Reference Range Interpretation [...] S NOT APPLICABLE FOR DIALYSIS PATIEN TS. [place]las Former ID - ADMINHEMOGLOBIN AND [id number] 05:16:00 Test Item Value Reference Range Interpretation Comments HEMOGLOBIN (BEAKER) (test code = 12.1 GM/DL 13.7-17.5 L 410) HEMATOCRIT (BEAKER) (test code = 35.7 % 40.1-51.0 L 411) Plex[place]las Former ID - [id number]-GLUCOSE [id number] 21:12:00 Test Item Value Reference Range Interpretation Comments POC-GLUCOSE METER 332 mg/dL 70-110 H [facility] ([facility]ER[facility] (test code = [place], 1538) [address]: Plexiglas Former/Techni aaliyah ID = [id number] for BEBA TREVINO BASIC METABOLIC [id number] 15:20:00 Test Item Value Reference Range Interpretation [...] S NOT APPLICABLE FOR DIALYSIS PATIEN TS. [place]las Former ID - DBPOCT-GLUCOSE [id number] 15:07:00 Test Item Value Reference Range Interpretation Comments POC-GLUCOSE METER 289 mg/dL 70-110 H : TESTED A T [facility] 6720 (BEAKER) (test code = [facility], 153) [address]: Plexiglas Former/Techni aaliyah ID = [id number] for JACQUELIN TABOR HEMOGLOBIN AND [id number] 15:01:00 Test Item Value Reference Range Interpretation Comments HEMOGLOBIN (BEAKER) (test code = 12.9 GM/DL 13.7-17.5 L 410) HEMATOCRIT (BEAKER) (test code = 39.1 % 40.1-51.0 L 411) Plexiglas Former ID - [id number]-GLUCOSE [id number] 08:00:00 Test Item Value Reference Range Interpretation Comments POC-GLUCOSE METER 150 mg/dL 70-110 H : TESTED A T [facility] 6720 (BEAKER) (test code = [facility], 1538) [address]: Plexiglas Former/Techni aaliyah ID = [id number] for Luther Hernandez SARS-COV2/RT-PCR ([facility])2020-12-26 00:04:00 Test Item Value Reference Range Interpretation Comments SARS-COV2/RT-PCR (test Negative Not Detected, Negative, code = 9917670) See external report for linked test SARS-COV-2 PERFORMING LAB [facility] ANIBAL (test code = 3169246) Negative result for this test determines that [...] the Zarco SARS-CoV-2 assay.Fact Sheet for Healthcare Providers:https://www.[employer].zarco/ada/ CW_PJXR-FaR-9_GQW_Mrvk_Tveyy_39-843002.pdfFact Sheet for Healthcare Patients:https://www.[employer] kadie/ada/NF_SQFT-HrK-2_Cxtntaz_Wwbu_Bomsb_LT_59-324997R2.pdfPerforming Laboratory:[facility] [place] [address] BASIC METABOLIC [id number] 13:07:00 Test Item Value Reference Range Interpretation [...] S NOT APPLICABLE FOR DIALYSIS PATIEN TS. Plexiglas Former ID - ADMINOperator ID - [id number] 12:34:00 Test Item Value Reference Range Interpretation Comments HEMOGLOBIN (BEAKER) (test code = 13.8 GM/DL 13.7-17.5 410) Plexiglas Former ID - 6000PLATELET [id number] 12:34:00 Test Item Value Reference Range Interpretation Comments PLATELET COUNT (BEAKER) (test 250 K/CU MM 150-450 code = 756) Plexiglas Former ID - [id number] / [facility] - DRUG SCREEN [id number] 00:11:00 Test Item Value Reference Range Interpretation Comments BENZO U (test code = Negative Negative 8292411809) KAEL U (test code = Negative Negative 7639083790) AMPHET (test code = Negative Negative 4586984846) THC (test code = Negative Negative 9888680179) METHADONE (test code = Negative Negative 7509322653) Meth U (test code = Negative Negative 7144781003) OPIATES (test code = Negative Negative 0933654255) Cocaine Metabolite (test Negative Negative code = 2394814780) PROPOXY (test code = Negative Negative 1719928215) Tric U (test code = Negative Negative 2914922069) PCP (test code = Negative Negative 4174665046) OXYCOD (test code = Negative Negative 2995576754) RONALD (test code = RONALD) Urine Drug [...] testing). Lab Interpretation (test Normal code = 17544-6) [facility] (ID NOW RAPID TESTING)2020-12-15 23:40:00 Test Item Value Reference Range Interpretation Comments SARS-CoV-2 Rapid ID NOW Not Detected Not Detected (test code = 79604-7) RONALD (test code = RONALD) ID NOW COVID-19 Assay is an isothermal nucleic acid amplification test intended for the qualitative detection of nucleic acid from SARS-CoV-2 viral RNA in nasopharyngeal (FRUIT GRADER) specimens. It is used under Emergency Use [...] indicated. Lab Interpretation Normal (test code = 00393-9) [facility] HospitalCREATINE [id number] 23:20:00 Test Item Value Reference Range Interpretation Comments CK (test code = 1848908820) 141 U/L 33-194 Lab Interpretation (test code = Normal 08573-1) [facility] HospitalB[facility] Metabolic Panel (NA, K, CL, CO2, GLUCOSE, BUN, CREATININE, CA)2020-12-15 23:01:00 Test Item Value Reference Range Interpretation Comments NA (test code = 138 mmol/L 135-145 8827290039) K (test code = 4.0 mmol/L 3.5-5 3247041516) CL (test code = 102 mmol/L 98-108 4070977721) CO2 TOTAL (test code = 29 mmol/L 23-31 8348304498) AGAP (test code = 2-16 5216878094) BUN (test code = 7 mg/dL 7-23 9323137445) GLUCOSE (test code = 199 mg/dL 70-110 H 6247490966) CREATININE (test code = 0.95 mg/dL 0.6-1.25 3305425143) CALCIUM (test code = 9.1 mg/dL 8.6-10.6 1661965292) eGFR Calculation mL/min/1.73m2 (Non-) (test code = 0488101013) eGFR Calculation mL/min/1.73m2 () (test code = 8871271885) RONALD (test code = RONALD) Association of [...] tests). Lab Interpretation Abnormal (test code = 00294-9) [facility] HospitalHepatic Function Panel (ALB, T.PRO, BILI T, BU/BC, ALT, AST, ALK PHOS)2020-12-15 23:01:00 Test Item Value Reference Range Interpretation Comments TOTAL BILI (test code = 3403130436) 0.8 mg/dL 0.1-1.1 BILI UNCON (test code = 4525080265) 0.7 mg/dL 0.1-1.1 BILI CONJ (test code = 1856637132) 0.0 mg/dL 0-0.3 T PROTEIN (test code = 8672643872) 7.5 g/dL 6.3-8.2 ALBUMIN (test code = 9088082733) 4.5 g/dL 3.5-5 ALK PHOS (test code = 7506753320) 75 U/L 34-122 ALTv (test code = 1742-6) 21 U/L 5-50 AST(SGOT) (test code = 6857246043) 29 U/L 13-40 Lab Interpretation (test code = Normal 60358-8) [facility] HospitalCT Head W/O [id number] 23:00:07 No acute intracranial hemorrhage or mass [...] degeneration. IMPRESSIONNo acute intracranial hemorrhage or mass effect.[facility] HospitalUrinalysis2021-02-12 22:54:00 Test Item Value Reference Range Interpretation Comments APPEARANCE (test code = Clear Clear 8968802396) COLOR (test code = Straw Yellow A 3866470733) PH (test code = 4.8-8.0 2071814380) SP GRAVITY (test code = 1.003-1.030 4897825710) GLU U QUAL (test code = Normal Normal 4122194408) BLOOD (test code = Negative Negative 1983228253) KETONES (test code = Negative Negative 8766512816) PROTEIN (test code = Negative Negative 2887-8) UROBILIN (test code = Normal Normal 2320199933) BILIRUBIN (test code = Negative Negative 9460797140) NITRITE (test code = Negative Negative 3479827006) LEUK TYE (test code = Negative Negative 7181861065) RBC/HPF (test code = <1 See_Comment [Autom ated message] 5708219220) The system [employer] generated this result transmitted ref erence range: 0 - 3 HP F. The reference range was not used to int erpret this result as normal/abnormal . WBC/HPF (test code = <1 See_Comment [Autom ated message] 0133232516) The system [employer] generated this result transmitted ref erence range: 0 - 5 HP F. The reference range was not used to int erpret this result as normal/abnormal . BACTERIA (test code = Negative Negative 3480749891) Lab Interpretation (test Abnormal code = 18693-1) [facility] HospitalCBC with [id number] 22:52:00 Test Item Value Reference Range Interpretation [...] RDW-SD (test code = 39.8 fL 38.5-51.6 75220-5) RDW-CV (test code = 12.4 % 12.1-15.4 788-0) PLT (test code = See_Comment [Automated 777-3) message] The sy stem which generated this result transmitted reference range : 150 - 328 10*3/ ?L. The reference r luly was not used to interpret this result as normal/abnormal . MPV (test code = 9.6 fL 9.8-13 L 71385-3) NRBC/100 WBC (test See_Comment [Automat ed code = 4646010981) message] The system which generated this result transmitted reference range : 0.0 - 10.0 /100 WBCs. The refer ence range was not u sed to interpret th is result as normal/abnormal . NRBC x10^3 (test code <0.01 See_Comment [Auto mated = 8384793236) message] The s ystem which generated this result transmitted reference range : 10*3/?L. The reference range was not used to interpret this result as normal/abnormal . GRAN MAT (NEUT) % 63.3 % (test code = 770-8) IMM GRAN % (test code 0.40 % = 9745133887) LYMPH % (test code = 25.1 % 736-9) MONO % (test code = 8.5 % 5905-5) EOS % (test code = 2.0 % 713-8) BASO % (test code = 0.7 % 706-2) GRAN MAT x10^3(ANC) 3.42 10*3/uL 1.99-6.95 (test code = 2912877895) IMM GRAN x10^3 (test <0.03 0-0.06 code = 4402197772) LYMPH x10^3 (test code 1.36 10*3/uL 1.09-3.23 = 731-0) MONO x10^3 (test code 0.46 10*3/uL 0.36-1.02 = 742-7) EOS x10^3 (test code = 0.11 10*3/uL 0.06-0.53 711-2) BASO x10^3 (test code 0.04 10*3/uL 0.01-0.09 = 704-7) Lab Interpretation Abnormal (test code = 22677-0) [facility]
[2021-10-18 11:25] LABS: Absolute Lymphocytes (CBC) 0.4 K/uL (0.7-4.9); Basophils % 0.6 % (0-1.3); Hematocrit 36.6 % (39.6-49.0); Lymphocytes % 3.7 % (15.3-44.8); MPV 7.6 fL (7.6-11.3); RBC Red Blood Cell Count 4.65 M/uL (4.33-5.43)
--- NOTE | 2021-10-18 11:48 | RAD REPORT ---
EXAM DESCRIPTION: CT - Head Brain Wo Cont - 10/18/2021 11:30 am CLINICAL HISTORY: Confused;Aphasia COMPARISON: October 11, 2021 MRI TECHNIQUE: Computed axial tomography of the head was obtained. IV contrast was not requested. All CT scans are performed using dose optimization technique as appropriate and may include automated exposure control or mA/KV adjustment according to patient size. FINDINGS: Multiple, bilateral brain lesions unchanged. Largest lies within the left frontal lobe. Ca lcified lesion right temporal lobe. A significant amount of vasogenic edema is not present. The ventricles are normal in caliber. No intracranial bleed No extra-axial fluid collection is noted. Fluid within the sinuses/ mastoids is not seen. 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
[2021-10-18 11:49] LABS: Potassium 4.5 mmol/L (3.5-5.1)
[2021-10-18] MEDS ORDERED: FAMOTIDINE 20 MG TAB ONE (12:56)
[2021-10-18] MEDS ORDERED: HYDROCODONE/APAP 10/325 TAB ONE (12:56)
[2021-10-18 12:57] LABS: Platelet Estimate ADEQ; White Blood Cell Scan OK (OK)
[2021-10-18] MEDS ORDERED: INSULIN -REGULAR HUMAN 50 UNIT/0.5 ML ML ONE (12:57)
[2021-10-18 12:59] LABS: Anisocytosis 1+; Blood Morphology Comment NOTED (NOT SEEN); Hypochromasia 1+
--- NOTE | 2021-10-18 13:55 | ER ---
Nurse's Notes [facility] Name: David Morris Age: 66 yrs Sex: Male : 1955 Arrival Date: 10/18/2021 Time: 09:44 Bed 13 Private MD: Gerardo Pacheco Diagnosis: Headache;Lung cancer with metastasis to the brain Presentation: 10/18 09:52 Chief complaint: Patient states: " I was just at the cancer center and they sent my vg1 over here to get a CT scan to see why my headaches are getting worse; I have brain cancer and lung". Coronavirus screen: Vaccine status: Patient reports receiving the 2nd dose of the covid vaccine. Client denies travel out of the [place] in the last 14 days. Ebola Screen: Patient negative for fever greater than or equal to 101.5 degrees Fahrenheit, and additional compatible Ebola Virus Disease symptoms. Initial Sepsis Screen: Does the patient meet any 2 criteria? No. Patient's initial sepsis screen is negative. Does the patient have a suspected source of infection? No. Patient's initial sepsis screen is negative. Risk Assessment: Do you want to hurt yourself or someone else? Patient reports no desire to harm self or others. Onset of symptoms was October 18, 2021. 09:52 Method Of Arrival: Ambulatory vg1 09:52 Acuity: ADITYA 3 vg1 Triage Assessment: 09:56 General: Appears in no apparent distress. uncomfortable, Behavior is calm, cooperative. vg1 Pain: Complains of pain in head Pain currently is 5 out of 10 on a pain scale. Neuro: Level of Consciousness is awake, alert, obeys commands, Oriented to person, place, time, situation, Reports headache Denies blurred vision dizziness. Historical: - Allergies: 09:56 No Known Allergies; vg1 - Home Meds: 09:56 Amitriptyline Oral [Active]; Aspirin Oral [Active]; Depakote Oral [Active]; Janumet vg1 Oral [Active]; losartan Oral [Active]; Simvastatin Oral [Active]; - PMHx: 09:56 diabetes mellitus; Hypertensive disorder; Seizure; Cancer-Lung and Brain; vg1 - Immunization history:: Client reports receiving the 2nd dose of the Covid vaccine. - Social history:: Smoking status: Patient/guardian denies using tobacco, Stopped _ months ago 2. Screenin:00 Abuse screen: Denies threats or abuse. Denies injuries from another. Nutritional jg9 screening: No deficits noted. Tuberculosis screening: No symptoms or risk factors identified. Fall Risk None identified. Assessment: 10:00 General: Appears in no apparent distress. Behavior is calm, cooperative, appropriate jg9 for age. Pain:. 10:37 Neuro: Reports headache occipital area, Patient reports that he has a Hx of brain jg9 cancer, he started radiation this month and since starting he has been experiencing worsening headaches, patient currently rates the pain 5/10, [employer] patient took his steroid medication which he takes QID, and he uses Tylenol in between . Patient was at his Onc doctor who advised him to come to the ED to get a CT scan to see if the worsening headaches can be explained. Cardiovascular: No deficits noted. Respiratory: Reports lung cancer Airway is patent Trachea midline Respiratory effort is even, unlabored, Respiratory pattern is regular, symmetrical, Breath sounds are diminished bilaterally. GI: No deficits noted. : No deficits noted. EENT: No deficits noted. Derm: No deficits noted. Musculoskeletal: No deficits noted. 11:19 Reassessment: No changes from previously documented assessment. Patient and/or family jg9 updated on plan of care and expected duration. Pain level reassessed. 12:07 Reassessment: Patient and/or family updated on plan of care and expected duration. Pain ap3 level reassessed. Patient is alert, oriented x 3, equal unlabored respirations, skin warm/dry/pink. 13:22 Reassessment: Patient and/or family updated on plan of care and expected duration. Pain ap3 level reassessed. Patient is alert, oriented x 3, equal unlabored respirations, skin warm/dry/pink. Vital Signs: 09:52 BP 114 / 66; Pulse 60; Resp 16; Temp 97.6; Pulse Ox 96% ; Weight 70.31 kg; Height 6 ft. vg1 0 in. (182.88 cm); Pain 5/10; 10:00 BP 114 / 75; Pulse 57; Resp 17; Pulse Ox 98% on R/A; jg9 12:05 BP 113 / 76 LA Sitting (auto/reg); Pulse 65; Resp 17; Pulse Ox 97% on R/A; ap3 13:00 BP 104 / 62; Pulse 53; Resp 16 S; Pulse Ox 96% on R/A; jg9 13:21 BP 114 / 61; Pulse 62; Pulse Ox 97% on R/A; ap3 09:52 Body Mass Index 21.02 (70.31 kg, 182.88 cm) vg1 ED Course: 09:44 Patient arrived in ED. am2 09:44 Gerardo Pacheco MD is Private Physician. am2 09:56 Triage completed. vg1 09:56 Arm band placed on. vg1 09:59 Simin Burton is Primary Nurse. jg9 10:00 Patient has correct armband on for positive identification. Bed in low position. Call jg9 light in reach. 10:27 Luke Limon MD is Attending Physician. kdr 11:10 Inserted saline lock: 22 gauge in right antecubital area, using aseptic technique. jg9 11:30 CT Head Brain wo Cont In Process Unspecified. EDMS 13:54 Gerardo Pacheco MD is Referral Physician. kdr 14:05 No provider procedures requiring assistance completed. jg9 14:05 IV discontinued. jg9 Administered Medications: 13:00 Drug: Pepcid (famotidine) 20 mg Route: PO; jg9 13:26 Follow up: Response: No adverse reaction jg9 13:02 Drug: Insulin Regular Human 10 units {Co-Signature: ap3 (Doreen Lindsey RN).} Route: jg9 IVP; Site: right antecubital; 13:26 Follow up: Response: No adverse reaction jg9 13:05 Drug: [place] (HYDROcodone-acetaminophen) 10 mg-325 mg 1 tabs Route: PO; jg9 13:26 Follow up: Response: No adverse reaction; Pain is decreased jg9 Outcome: 13:55 Discharge ordered by . kdr 14:05 Discharged to home ambulatory, with significant other. jg9 14:05 Condition: stable 14:05 Condition: improved 14:05 Discharge instructions given to patient, significant other, Instructed on discharge instructions, follow up and referral plans. Demonstrated understanding of instructions, follow-up care, medications, Prescriptions given X 1. 14:06 Patient left the ED. jg9 Signatures: Dispatcher [employer] EDMD Luke Limon MD MD kdr Doreen Jung Amanda, RN RN ap3 Jessica Palencia RN RN vg1 Simin Burton jg9 Doreen Lindsey RN ap3
--- NOTE | 2021-10-18 13:55 | EDPHYS ---
Physician Documentation [facility] Name: David Morris Age: 66 yrs Sex: Male : 1955 Arrival Date: 10/18/2021 Time: 09:44 Bed 13 Private MD: Gerardo Pacheco ED Physician Luke Limon Historical: - Allergies: 10/18 09:56 No Known Allergies; vg1 - Home Meds: 09:56 Amitriptyline Oral [Active]; Aspirin Oral [Active]; Depakote Oral [Active]; Janumet vg1 Oral [Active]; losartan Oral [Active]; Simvastatin Oral [Active]; - PMHx: 09:56 diabetes mellitus; Hypertensive disorder; Seizure; Cancer-Lung and Brain; vg1 - Immunization history:: Client reports receiving the 2nd dose of the Covid vaccine. - Social history:: Smoking status: Patient/guardian denies using tobacco, Stopped _ months ago 2. Vital Signs: 09:52 BP 114 / 66; Pulse 60; Resp 16; Temp 97.6; Pulse Ox 96% ; Weight 70.31 kg; Height 6 ft. vg1 0 in. (182.88 cm); Pain 5/10; 10:00 BP 114 / 75; Pulse 57; Resp 17; Pulse Ox 98% on R/A; jg9 12:05 BP 113 / 76 LA Sitting (auto/reg); Pulse 65; Resp 17; Pulse Ox 97% on R/A; ap3 13:00 BP 104 / 62; Pulse 53; Resp 16 S; Pulse Ox 96% on R/A; jg9 13:21 BP 114 / 61; Pulse 62; Pulse Ox 97% on R/A; ap3 09:52 Body Mass Index 21.02 (70.31 kg, 182.88 cm) vg1 MDM: 13:55 Patient medically screened. kdr 10/18 10:57 Order name: CBC with Diff; Complete Time: 13:47 kdr 10/18 10:57 Order name: Chem 7; Complete Time: 12:42 kdr 10/18 10:57 Order name: CT Head Brain wo Cont; Complete Time: 12:42 kdr 10/18 12:57 Order name: CBC Smear Scan; Complete Time: 13:47 EDMS Administered Medications: 13:00 Drug: Pepcid (famotidine) 20 mg Route: PO; jg9 13:26 Follow up: Response: No adverse reaction jg9 13:02 Drug: Insulin Regular Human 10 units {Co-Signature: ap3 (Doreen Lindsey RN).} Route: jg9 IVP; Site: right antecubital; 13:26 Follow up: Response: No adverse reaction jg9 13:05 Drug: [place] (HYDROcodone-acetaminophen) 10 mg-325 mg 1 tabs Route: PO; jg9 13:26 Follow up: Response: No adverse reaction; Pain is decreased jg9 Disposition Summary: 10/18/21 13:55 Discharge Ordered Location: Home kdr Problem: an ongoing problem kdr Symptoms: have improved kdr Condition: Stable kdr Diagnosis - Headache kdr - Lung cancer with metastasis to the brain kdr Followup: kdr - With: Gerardo Pacheco MD - When: 1 - 2 days - Reason: If symptoms return, Further diagnostic work-up, Recheck today's complaints, Continuance of care, Re-evaluation by your physician Discharge Instructions: - Discharge Summary Sheet kdr - General Headache Without Cause kdr - Lung Cancer kdr - Metastatic Brain Tumor, Adult kdr Forms: - Medication Reconciliation Form kdr - Thank You Letter kdr - Prescription Opioid Use kdr Prescriptions: - Tylenol-Codeine #3 300 mg-30 mg Oral - take 1 tablet by ORAL route every 4-6 hours As needed; 16 tablet; Refills: 0, kdr Product Selection Permitted Signatures: Dispatcher [employer] Luke Haque MD MD kdr Jessica Palencia RN RN vg1 Simin Burton jg9 Doreen Lindsey RN ap3
[2021-10-18 14:14] VITALS: TEMP 97.6
[2021-10-18 14:27] VITALS: BP 114/61; O2SAT 97
== END 2021-10-18 14:06 | disposition home or self-care (01) ==
LOC: ER 09:38
DX: R51.9 Headache, unspecified (principal); E11.9 Type 2 diabetes mellitus without complications; I10 Essential (primary) hypertension; C34.90 Malignant neoplasm of unspecified part of unspecified bronchus or lung; C79.31 Secondary malignant neoplasm of brain
CPT/HCPCS: 36415; 70450; 80048; 82947; 85025; 96374; 99284